=== PATIENT | male | born 1935 | race Caucasian/White ===

== ENCOUNTER 2020-01-04 10:19 | Outpatient (REF) | payer MEDICARE, SELFPAY ==
[2020-01-04 12:18] LABS: Anion Gap 9 (12-20); Blood Urea Nitrogen 23 mg/dL (9-16); Calcium 8.8 mg/dL (8.4-10.2); Carbon Dioxide 32 mmol/L (22-29); Chloride 106 mmol/L (96-108); Estimated Glomerular Filt Rate 43; Potassium 4.2 mmol/l (3.3-5.1); Sodium 143 mmol/L (135-145)
== END 2020-01-04 10:20 | disposition home or self-care (01) ==
LOC: HO.HMGCLDS 10:19
PROVIDERS: PCP Internal Medicine; Visit Provider Internal Medicine Hypertension Specialist
DX: E11.22 Type 2 diabetes mellitus with diabetic chronic kidney disease (principal); I13.10 Hypertensive heart and chronic kidney disease without heart failure, with stage 1 through stage 4 chronic kidney disease, or unspecified chronic kidney disease; E11.21 Type 2 diabetes mellitus with diabetic nephropathy; N18.30 Chronic kidney disease, stage 3 unspecified
CPT/HCPCS: 36415; 80051; 82310; 82565; 84520

== ENCOUNTER 2020-01-29 13:50 | Outpatient (REF) | payer MEDICARE, SELFPAY ==
[2020-01-29 16:08] LABS: Hemoglobin 14.7 g/dl (14.0-18.0); Mean Corpuscular Volume 88.1 fL (80-98); PLT CLUMP 1
[2020-01-29 16:10] LABS: Hematocrit 45.8 % (42-52); Mean Corpuscular HGB Conc 32.1 g/dl (31.0-36.0); Mean Corpuscular Hemoglobin 28.3 pg (27.0-33.0); Mean Platelet Volume 10.2 fL (9.4-12.4); Red Cell Distribution Width 13.1 % (11.0-16.0); White Blood Count 5.4 X10*3/uL (4.8-10.8)
[2020-01-29 16:31] LABS: Alanine Aminotransferase 18 U/L (0-40); Albumin Level 3.9 g/dL (3.5-5.0); Alkaline Phosphatase 77 U/L (39-117); Anion Gap 11 (12-20); Aspartate Amino Transferase 25 U/L (5-37); Bilirubin Total 0.7 mg/dL (0.0-1.0); Blood Urea Nitrogen 22 mg/dL (9-16); Calcium 8.2 mg/dL (8.4-10.2); Carbon Dioxide 31 mmol/L (22-29); Chloride 104 mmol/L (96-108); Estimated Glomerular Filt Rate 40; Glucose Fasting 122 mg/dL (60-99); Potassium 4.4 mmol/l (3.3-5.1); Sodium 142 mmol/L (135-145); Total Protein 6.8 g/dL (6.5-8.0)
[2020-01-29 16:51] LABS: Creatinine Urine 81.65 mg/dL; Microalbum/Creatinine Ratio Ur 8.5 ug/mg cr
== END 2020-01-29 13:51 | disposition home or self-care (01) ==
LOC: HO.LAB 13:50
PROVIDERS: PCP Internal Medicine; Referring Provider Internal Medicine; Visit Provider Internal Medicine Endocrinology, Diabetes & Metabolism
DX: E11.22 Type 2 diabetes mellitus with diabetic chronic kidney disease (principal); N18.30 Chronic kidney disease, stage 3 unspecified; E11.40 Type 2 diabetes mellitus with diabetic neuropathy, unspecified; E04.2 Nontoxic multinodular goiter; E78.5 Hyperlipidemia, unspecified; Z79.4 Long term (current) use of insulin
CPT/HCPCS: 36415; 80053; 82043; 82947; 85027; 99212

== ENCOUNTER 2020-02-04 11:33 | Outpatient (REF) | payer MEDICARE, SELFPAY ==
[2020-02-04 13:45] LABS: Albumin Level 3.8 g/dL (3.5-5.0); Calcium 8.3 mg/dL (8.4-10.2)
[2020-02-04 13:50] LABS: Vitamin D 25-OH Total 20.8 ng/mL (>30)
== END 2020-02-04 11:34 | disposition home or self-care (01) ==
LOC: HO.LAB 11:33
PROVIDERS: PCP Internal Medicine; Visit Provider Internal Medicine Endocrinology, Diabetes & Metabolism
DX: N18.30 Chronic kidney disease, stage 3 unspecified (principal)
CPT/HCPCS: 36415; 82040; 82306; 82310; 85049

== ENCOUNTER 2020-03-09 09:48 | Outpatient (REF) | payer MEDICARE, SELFPAY ==
[2020-03-09 11:38] LABS: Estimated Average Glucose 166 mg/dL; Hemoglobin A1c % 7.4 %
[2020-03-09 11:39] LABS: Hematocrit 46.1 % (42-52); Hemoglobin 14.7 g/dl (14.0-18.0); Mean Corpuscular HGB Conc 31.9 g/dl (31.0-36.0); Mean Corpuscular Hemoglobin 28.2 pg (27.0-33.0); Mean Corpuscular Volume 88.3 fL (80-98); Mean Platelet Volume 10.9 fL (9.4-12.4); PLT CLUMP 1; Red Blood Count 5.22 X10*6/uL (4.60-5.80); Red Cell Distribution Width 12.9 % (11.0-16.0)
[2020-03-09 11:56] LABS: Alanine Aminotransferase 15 U/L (0-40); Albumin Level 3.9 g/dL (3.5-5.0); Alkaline Phosphatase 73 U/L (39-117); Anion Gap 11 (12-20); Aspartate Amino Transferase 21 U/L (5-37); Bilirubin Total 0.7 mg/dL (0.0-1.0); Blood Urea Nitrogen 20 mg/dL (9-16); Calcium 8.5 mg/dL (8.4-10.2); Carbon Dioxide 30 mmol/L (22-29); Chloride 104 mmol/L (96-108); Estimated Glomerular Filt Rate 39; Glucose Fasting 131 mg/dL (60-99); Potassium 4.2 mmol/l (3.3-5.1); Sodium 141 mmol/L (135-145); Total Protein 6.5 g/dL (6.5-8.0)
[2020-03-09 12:16] LABS: Creatinine Urine 142.53 mg/dL; Microalbum/Creatinine Ratio Ur 17.5 ug/mg cr
[2020-03-09 14:40] LABS: White Blood Count 5.1 X10*3/uL (4.8-10.8)
== END 2020-03-09 09:49 | disposition home or self-care (01) ==
LOC: HO.HMGCLDS 09:48
PROVIDERS: PCP Internal Medicine; Visit Provider Internal Medicine
DX: E11.49 Type 2 diabetes mellitus with other diabetic neurological complication (principal); I10 Essential (primary) hypertension; F03.90 Unspecified dementia, unspecified severity, without behavioral disturbance, psychotic disturbance, mood disturbance, and anxiety
CPT/HCPCS: 36415; 80053; 82043; 83036; 85027

== ENCOUNTER 2020-04-29 14:36 | Outpatient (REF) | payer MEDICARE, SELFPAY ==
[2020-04-29 16:37] LABS: Alanine Aminotransferase 15 U/L (0-40); Albumin Level 4.1 g/dL (3.5-5.0); Alkaline Phosphatase 73 U/L (39-117); Anion Gap 10 (12-20); Aspartate Amino Transferase 21 U/L (5-37); Bilirubin Total 0.9 mg/dL (0.0-1.0); Blood Urea Nitrogen 25 mg/dL (9-16); Carbon Dioxide 34 mmol/L (22-29); Chloride 105 mmol/L (96-108); Estimated Glomerular Filt Rate 38; Glucose Random 115 mg/dL (60-115); Sodium 145 mmol/L (135-145); Total Protein 6.9 g/dL (6.5-8.0); Uric Acid 9.8 mg/dL (3.4-7.0)
== END 2020-04-29 14:37 | disposition home or self-care (01) ==
LOC: HO.LAB 14:36
PROVIDERS: PCP Internal Medicine; Visit Provider Student in an Organized Health Care Education/Training Program
DX: M1A.09X1 Idiopathic chronic gout, multiple sites, with tophus (tophi) (principal); Z87.891 Personal history of nicotine dependence; Z79.899 Other long term (current) drug therapy
CPT/HCPCS: 36415; 80053; 84550; 99212

== ENCOUNTER 2020-05-06 10:23 | Outpatient (REF) | payer MEDICARE, SELFPAY ==
[2020-05-06 11:41] LABS: Basophils Absolute Auto 0.1 X10*3/uL (0.0-0.2); Basophils Percent Auto 1.4 % (0-2); MANUAL DIFF FLAG SCAN; PLT CLUMP 1; Red Cell Distribution Width 12.8 % (11.0-16.0); SCAN SMEAR FLAG 1
[2020-05-06 11:43] LABS: Eosinophils Absolute Auto 0.2 X10*3/uL (0.0-0.4); Hematocrit 44.4 % (42-52); Hemoglobin 14.4 g/dl (14.0-18.0); Imm Gran Abs Auto 0.02 X10*3/uL (0.00-0.03); Imm Gran Pct Auto 0.4 % (0.0-0.4); Lymphocytes Absolute Auto 0.9 X10*3/uL (1.2-4.9); Lymphocytes Percent Auto 17.2 % (20-40); Mean Corpuscular HGB Conc 32.4 g/dl (31.0-36.0); Mean Corpuscular Hemoglobin 27.9 pg (27.0-33.0); Mean Platelet Volume 11.6 fL (9.4-12.4); Monocytes Absolute Auto 0.9 X10*3/uL (0.1-1.2); Monocytes Percent Auto 18.4 % (2-11); Neutrophils Percent Auto 59.6 % (45-73); Red Blood Count 5.16 X10*6/uL (4.60-5.80)
[2020-05-06 11:53] LABS: Albumin Level 3.6 g/dL (3.5-5.0); Anion Gap 12 (12-20); Blood Urea Nitrogen 18 mg/dL (9-16); Calcium 8.3 mg/dL (8.4-10.2); Carbon Dioxide 28 mmol/L (22-29); Chloride 108 mmol/L (96-108); Estimated Glomerular Filt Rate 41; Phosphorus 3.1 mg/dL (2.7-4.5); Potassium 3.8 mmol/L (3.3-5.1); Sodium 144 mmol/L (135-145)
[2020-05-06 12:26] LABS: SLIDE REVIEW VERIFIED
[2020-05-09 18:37] LABS: Calcium (PTHI) 8.9 mg/dL (8.6-10.3); PTHI 82 pg/mL (14-64)
== END 2020-05-06 10:24 | disposition home or self-care (01) ==
LOC: HO.HMGCLDS 10:23
PROVIDERS: PCP Internal Medicine; Visit Provider Internal Medicine Hypertension Specialist
DX: I13.10 Hypertensive heart and chronic kidney disease without heart failure, with stage 1 through stage 4 chronic kidney disease, or unspecified chronic kidney disease (principal); N18.30 Chronic kidney disease, stage 3 unspecified
CPT/HCPCS: 36415; 80051; 82040; 82310; 82565; 83735; 83970; 84100; 84520; 85025

== ENCOUNTER 2020-08-01 09:04 | Outpatient (REF) | payer MEDICARE, SELFPAY ==
[2020-08-01 11:29] LABS: PLT CLUMP 1; Red Cell Distribution Width 13.2 % (11.0-16.0)
[2020-08-01 11:31] LABS: Hematocrit 45.9 % (42-52); Hemoglobin 14.7 g/dl (14.0-18.0); Mean Corpuscular Hemoglobin 27.8 pg (27.0-33.0); Mean Corpuscular Volume 86.8 fL (80-98); Red Blood Count 5.29 X10*6/uL (4.60-5.80); White Blood Count 4.6 X10*3/uL (4.8-10.8)
[2020-08-01 12:13] LABS: Alanine Aminotransferase 17 U/L (0-40); Albumin Level 3.7 g/dL (3.5-5.0); Alkaline Phosphatase 67 U/L (39-117); Anion Gap 11 (12-20); Aspartate Amino Transferase 20 U/L (5-37); Bilirubin Total 0.9 mg/dL (0.0-1.0); Blood Urea Nitrogen 22 mg/dL (9-16); Calcium 8.7 mg/dL (8.4-10.2); Carbon Dioxide 31 mmol/L (22-29); Chloride 105 mmol/L (96-108); Cholesterol 118 mg/dL; Estimated Glomerular Filt Rate 39; Glucose Fasting 171 mg/dL (60-99); HDL Cholesterol 34 mg/dL; LDL Cholesterol Calculated 68 mg/dl; Sodium 143 mmol/L (135-145); Total Protein 6.3 g/dL (6.5-8.0); Triglycerides 83 mg/dL
[2020-08-01 12:33] LABS: Estimated Average Glucose 183 mg/dL
[2020-08-01 12:44] LABS: Creatinine Urine 168.28 mg/dL; Microalbum/Creatinine Ratio Ur 21.9 ug/mg cr
== END 2020-08-01 09:05 | disposition home or self-care (01) ==
LOC: HO.HMGCLDS 09:04
PROVIDERS: PCP Internal Medicine; Visit Provider Internal Medicine
DX: I12.9 Hypertensive chronic kidney disease with stage 1 through stage 4 chronic kidney disease, or unspecified chronic kidney disease (principal); N18.30 Chronic kidney disease, stage 3 unspecified; E11.22 Type 2 diabetes mellitus with diabetic chronic kidney disease; E11.40 Type 2 diabetes mellitus with diabetic neuropathy, unspecified
CPT/HCPCS: 36415; 80053; 80061; 82043; 83036; 85027

== ENCOUNTER → 2020-08-02 10:41 | Outpatient (BNVA) | payer MEDICARE, SELFPAY | PROVIDERS: PCP Internal Medicine; Visit Provider Internal Medicine Endocrinology, Diabetes & Metabolism | CPT/HCPCS: Q3014 ==

== ENCOUNTER → 2020-11-03 10:27 | Outpatient (BNVA) | payer MEDICARE, SELFPAY | PROVIDERS: PCP Internal Medicine; Visit Provider Nurse Practitioner Gerontology | DX: E11.40 Type 2 diabetes mellitus with diabetic neuropathy, unspecified (principal); E11.22 Type 2 diabetes mellitus with diabetic chronic kidney disease; I12.9 Hypertensive chronic kidney disease with stage 1 through stage 4 chronic kidney disease, or unspecified chronic kidney disease; N18.30 Chronic kidney disease, stage 3 unspecified; E78.5 Hyperlipidemia, unspecified; Z79.4 Long term (current) use of insulin | CPT/HCPCS: 82947; 99212 ==

== ENCOUNTER 2020-11-15 09:26 | Outpatient (REF) | payer MEDICARE, SELFPAY ==
[2020-11-15 11:40] LABS: Imm Gran Abs Auto 0.01 X10*3/uL (0.00-0.03); Imm Gran Pct Auto 0.2 % (0.0-0.4); MANUAL DIFF FLAG SCAN; Monocytes Absolute Auto 0.8 X10*3/uL (0.1-1.2); PLT CLUMP 1; Red Cell Distribution Width 12.9 % (11.0-16.0); SCAN SMEAR FLAG 1
[2020-11-15 11:42] LABS: Basophils Absolute Auto 0.1 X10*3/uL (0.0-0.2); Basophils Percent Auto 1.2 % (0-2); Eosinophils Absolute Auto 0.1 X10*3/uL (0.0-0.4); Eosinophils Percent Auto 2.1 % (0-4); Hematocrit 45.3 % (42-52); Lymphocytes Absolute Auto 0.8 X10*3/uL (1.2-4.9); Lymphocytes Percent Auto 16.7 % (20-40); Mean Corpuscular HGB Conc 33.1 g/dl (31.0-36.0); Mean Corpuscular Hemoglobin 28.1 pg (27.0-33.0); Mean Platelet Volume 12.1 fL (9.4-12.4); Monocytes Percent Auto 16.3 % (2-11); Neutrophils Absolute Auto 3.1 X10*3/uL (2.0-8.3); Neutrophils Percent Auto 63.5 % (45-73); Red Blood Count 5.33 X10*6/uL (4.60-5.80); White Blood Count 4.9 X10*3/uL (4.8-10.8)
[2020-11-15 11:49] LABS: Alanine Aminotransferase 19 U/L (0-40); Albumin Level 3.7 g/dL (3.5-5.0); Alkaline Phosphatase 65 U/L (39-117); Anion Gap 10 (12-20); Aspartate Amino Transferase 22 U/L (5-37); Bilirubin Total 0.8 mg/dL (0.0-1.0); Blood Urea Nitrogen 19 mg/dL (9-16); Calcium 8.7 mg/dL (8.4-10.2); Carbon Dioxide 28 mmol/L (22-29); Chloride 107 mmol/L (96-108); Estimated Glomerular Filt Rate 42; Glucose Random 128 mg/dL (60-115); Sodium 141 mmol/L (135-145); Total Protein 6.4 g/dL (6.5-8.0)
[2020-11-15 12:07] LABS: SLIDE REVIEW VERIFIED
== END 2020-11-15 09:27 | disposition home or self-care (01) ==
LOC: HO.HMGCLDS 09:26
PROVIDERS: PCP Internal Medicine; Visit Provider Internal Medicine Hypertension Specialist
DX: N18.32 Chronic kidney disease, stage 3b (principal)
CPT/HCPCS: 36415; 80053; 85025

== ENCOUNTER 2020-12-08 09:00 | Outpatient (REF) | payer MEDICARE, SELFPAY | END 2020-12-08 09:01 | disposition home or self-care (01) | LOC: HO.LAB 09:00 | PROVIDERS: PCP Internal Medicine; Visit Provider Nurse Practitioner Family | DX: M1A.09X1 Idiopathic chronic gout, multiple sites, with tophus (tophi) (principal); E11.9 Type 2 diabetes mellitus without complications; E04.2 Nontoxic multinodular goiter; I10 Essential (primary) hypertension; Z79.899 Other long term (current) drug therapy; Z87.891 Personal history of nicotine dependence | CPT/HCPCS: 36415; 84550; 99212 ==

== ENCOUNTER 2021-02-06 09:24 | Outpatient (REF) | payer MEDICARE, SELFPAY ==
[2021-02-06 11:45] LABS: PLT CLUMP 1
[2021-02-06 11:47] LABS: Hematocrit 45.6 % (42.0-52.0); Hemoglobin 14.9 g/dl (14.0-18.0); Mean Corpuscular HGB Conc 32.7 g/dl (31.0-36.0); Mean Corpuscular Hemoglobin 28.4 pg (27.0-33.0); Mean Corpuscular Volume 86.9 fL (80.0-98.0); Red Blood Count 5.25 X10*6/uL (4.60-5.80); Red Cell Distribution Width 13.1 % (11.0-16.0)
[2021-02-06 12:01] LABS: Alanine Aminotransferase 19 U/L (0-40); Albumin Level 3.8 g/dL (3.5-5.0); Alkaline Phosphatase 70 U/L (39-117); Anion Gap 12 (12-20); Aspartate Amino Transferase 23 U/L (5-37); Bilirubin Total 0.9 mg/dL (0.0-1.0); Blood Urea Nitrogen 20 mg/dL (9-16); Calcium 8.7 mg/dL (8.4-10.2); Carbon Dioxide 29 mmol/L (22-29); Chloride 105 mmol/L (96-108); Cholesterol 127 mg/dL; Estimated Glomerular Filt Rate 40; Glucose Fasting 139 mg/dL (60-99); HDL Cholesterol 34 mg/dL; LDL Cholesterol Calculated 71 mg/dl; Potassium 3.9 mmol/L (3.3-5.1); Sodium 142 mmol/L (135-145); Total Protein 6.4 g/dL (6.5-8.0); Triglycerides 110 mg/dL
[2021-02-06 12:09] LABS: Estimated Average Glucose 151 mg/dL; Hemoglobin A1c % 6.9 %
== END 2021-02-06 09:25 | disposition home or self-care (01) ==
LOC: HO.HMGCLDS 09:24
PROVIDERS: PCP Internal Medicine; Visit Provider Internal Medicine
DX: E11.40 Type 2 diabetes mellitus with diabetic neuropathy, unspecified (principal); E78.5 Hyperlipidemia, unspecified; I12.9 Hypertensive chronic kidney disease with stage 1 through stage 4 chronic kidney disease, or unspecified chronic kidney disease; N18.30 Chronic kidney disease, stage 3 unspecified; E11.22 Type 2 diabetes mellitus with diabetic chronic kidney disease
CPT/HCPCS: 36415; 80053; 80061; 83036; 85027

== ENCOUNTER 2021-02-20 10:18 | Outpatient (REF) | payer MEDICARE, SELFPAY ==
[2021-02-20 11:43] LABS: Anion Gap 12 (12-20); Blood Urea Nitrogen 21 mg/dL (9-16); Calcium 8.7 mg/dL (8.4-10.2); Carbon Dioxide 28 mmol/L (22-29); Chloride 107 mmol/L (96-108); Estimated Glomerular Filt Rate 39; Potassium 4.3 mmol/L (3.3-5.1); Sodium 143 mmol/L (135-145)
[2021-02-20 12:08] LABS: Creatinine Urine 135.31 mg/dL; Protein/Creatinine Ratio, Ur 0.08 (<0.2); Total Protein Urine Random 11 mg/dL (<12)
[2021-02-21 14:10] LABS: Calcium (PTHI) 8.8 mg/dL (8.6-10.3); PTHI 80 pg/mL (14-64)
== END 2021-02-20 10:19 | disposition home or self-care (01) ==
LOC: HO.HMGCLDS 10:18
PROVIDERS: PCP Internal Medicine; Visit Provider Internal Medicine Hypertension Specialist
DX: I12.9 Hypertensive chronic kidney disease with stage 1 through stage 4 chronic kidney disease, or unspecified chronic kidney disease (principal); N18.9 Chronic kidney disease, unspecified
CPT/HCPCS: 36415; 80051; 82310; 82565; 83970; 84156; 84520

== ENCOUNTER → 2021-05-19 12:21 | Outpatient (BNVA) | payer MEDICARE, SELFPAY | PROVIDERS: PCP Internal Medicine; Visit Provider Nurse Practitioner Gerontology | DX: E11.40 Type 2 diabetes mellitus with diabetic neuropathy, unspecified (principal); E11.22 Type 2 diabetes mellitus with diabetic chronic kidney disease; I12.9 Hypertensive chronic kidney disease with stage 1 through stage 4 chronic kidney disease, or unspecified chronic kidney disease; N18.30 Chronic kidney disease, stage 3 unspecified; E78.5 Hyperlipidemia, unspecified; Z79.4 Long term (current) use of insulin | CPT/HCPCS: 82947; 83036; 99212 ==

== ENCOUNTER 2021-06-05 09:42 | Outpatient (REF) | payer MEDICARE, SELFPAY ==
[2021-06-05 11:37] LABS: Basophils Absolute Auto 0.1 X10*3/uL (0.0-0.2); Basophils Percent Auto 1.6 % (0-2); Eosinophils Absolute Auto 0.2 X10*3/uL (0.0-0.4); Hematocrit 46.8 % (42.0-52.0); Hemoglobin 14.9 g/dl (14.0-18.0); Imm Gran Abs Auto 0.01 X10*3/uL (0.00-0.03); Imm Gran Pct Auto 0.2 % (0.0-0.4); Lymphocytes Absolute Auto 0.8 X10*3/uL (1.2-4.9); Lymphocytes Percent Auto 16.2 % (20-40); MANUAL DIFF FLAG SCAN; Mean Corpuscular HGB Conc 31.8 g/dl (31.0-36.0); Mean Corpuscular Hemoglobin 27.6 pg (27.0-33.0); Mean Corpuscular Volume 86.7 fL (80.0-98.0); Mean Platelet Volume 11.3 fL (9.4-12.4); Monocytes Absolute Auto 0.9 X10*3/uL (0.1-1.2); Monocytes Percent Auto 17.2 % (2-11); Neutrophils Absolute Auto 3.1 x10*3/uL (2.0-8.3); Neutrophils Percent Auto 61.8 % (45-73); PLT CLUMP 1; Red Cell Distribution Width 13.2 % (11.0-16.0); SCAN SMEAR FLAG 1
[2021-06-05 11:38] LABS: White Blood Count 5.1 X10*3/uL (4.8-10.8)
[2021-06-05 12:04] LABS: SLIDE REVIEW VERIFIED
[2021-06-05 12:10] LABS: Alanine Aminotransferase 15 U/L (0-40); Albumin Level 3.7 g/dL (3.5-5.0); Alkaline Phosphatase 65 U/L (39-117); Anion Gap 12 (12-20); Aspartate Amino Transferase 21 U/L (5-37); Bilirubin Total 0.8 mg/dL (0.0-1.0); Blood Urea Nitrogen 22 mg/dL (9-16); Carbon Dioxide 30 mmol/L (22-29); Chloride 107 mmol/L (96-108); Estimated Glomerular Filt Rate 34; Glucose Fasting 153 mg/dL (60-99); Potassium 3.9 mmol/L (3.3-5.1); Sodium 145 mmol/L (135-145); Total Protein 6.5 g/dL (6.5-8.0)
[2021-06-05 12:12] LABS: Vitamin D 25-OH Total 55.1 ng/mL (>30)
[2021-06-05 12:17] LABS: Estimated Average Glucose 157 mg/dL; Hemoglobin A1c % 7.1 %
[2021-06-05 12:29] LABS: Vitamin B12 402 pg/mL (200-900)
[2021-06-07 18:01] LABS: Uric Acid 10.4 mg/dL (3.4-7.0)
== END 2021-06-05 09:43 | disposition home or self-care (01) ==
LOC: HO.HMGCLDS 09:42
PROVIDERS: Absent Provider Internal Medicine Hypertension Specialist; PCP Internal Medicine; Visit Provider Internal Medicine
DX: I12.9 Hypertensive chronic kidney disease with stage 1 through stage 4 chronic kidney disease, or unspecified chronic kidney disease (principal); N18.30 Chronic kidney disease, stage 3 unspecified; E11.22 Type 2 diabetes mellitus with diabetic chronic kidney disease; E78.5 Hyperlipidemia, unspecified
CPT/HCPCS: 36415; 80053; 82306; 82607; 83036; 84550; 85025

== ENCOUNTER → 2021-06-07 13:08 | Outpatient (BNVA) | payer MEDICARE, SELFPAY | PROVIDERS: PCP Internal Medicine; Visit Provider Nurse Practitioner Family | DX: M1A.09X1 Idiopathic chronic gout, multiple sites, with tophus (tophi) (principal); R09.89 Other specified symptoms and signs involving the circulatory and respiratory systems | CPT/HCPCS: 99212 ==

== ENCOUNTER 2021-08-22 10:26 | Emergency (ER) | payer MEDICARE, SELFPAY ==
[2021-08-22] VITALS (9 sets, daily range): BP systolic 154–213; BP diastolic 52–90; PULSE 46–64; RESP 16–20; TEMP 36.4–37.1; O2SAT 94–96; BMI 32.7
--- NOTE | 2021-08-22 11:43 | ECG_ITS ---
Test Reason : WEAKNESS Blood Pressure : / mmHG Vent. Rate : 049 BPM Atrial Rate : 049 BPM P-R Int : 194 ms QRS Dur : 152 ms QT Int : 528 ms P-R-T Axes : 073 -14 061 degrees QTc Int : 476 ms Sinus bradycardia Right bundle branch block Abnormal ECG When compared with ECG of 28-APR-2018 15:37, Premature atrial complexes are no longer Present Vent. rate has decreased BY 26 BPM Nonspecific T wave abnormality no longer evident in Inferior leads Referred By: Madison Li Electronically Signed By:Julius Leal
--- NOTE | 2021-08-22 11:45 | ED.GENADULT ---
HPI - General Adult General Chief complaint: Fall Stated complaint: GEN WEAKNESS X'S 3 DAYS,UNABLE TO AMB ,212/76 BP Time Seen by Provider: 08/22/21 11:35 Source: patient, family and EMS Mode of arrival: EMS Limitations: other (Memory trouble) History of Present Illness HPI narrative: Patient comes to the emergency room by ambulance accompanied by his . Seems that the patient has been gradually getting weaker over the last 3 days. Today, patient was sitting in the couch at home, he was trying to get up, try using his walker, lost balance and fell sideways. Patient did not lose consciousness, did not hit his head, not on blood thinners. Patient states that he landed softly, he did not get injured, denies any pain. Patient and his are concerned about the weakness. Patient denies any recent illnesses, denies URI, GI or UTI symptoms. Related Data Home Medications Medication Instructions Recorded Confirmed blood sugar diagnostic #10 ea 01/29/20 06/09/21 hydralazine 25 mg tablet 25 mg PO TID 01/29/20 06/09/21 pen needle, diabetic 31 gauge x #50 ea 01/29/20 06/09/21 1/4 flu vacc [id number](65yr up)-PF 240 ml IM 03/16/20 06/09/21 mcg/0.7 mL intramuscular syringe metoprolol succinate 100 mg 100 mg PO DAILY 02/08/21 06/09/21 tablet,extended release 24 hr Previous Rx's Medication Instructions Recorded lancets 28 gauge #100 ea 04/13/20 insulin glargine 100 unit/mL (3 13 unit (0.13 mL) SUBCUT BEDTIME 08/02/20 mL) subcutaneous pen (Lantus 90 Days #15 ml Solostar U-100 Insulin) lancets 28 gauge (FreeStyle #300 ea 08/02/20 Lancets) furosemide 20 mg tablet 20 mg PO DAILY #90 tab 10/05/20 pen needle, diabetic 32 gauge x #400 ea 10/18/20 (BD Solange 2nd Gen Pen Needle) metoprolol succinate 50 mg 50 mg PO DAILY #90 tab 12/27/20 tablet,extended release 24 hr metformin 500 mg tablet 500 mg PO DAILY #90 tab 02/17/21 memantine 10 mg tablet 10 mg PO BID #180 tab 05/08/21 insulin lispro 100 unit/mL See Rx Instructions SUBCUT TID #15 05/19/21 subcutaneous pen (Humalog KwikPen ml (U-100) Insulin) calcium carbonate 600 mg calcium 600 mg PO DAILY #90 tab 06/07/21 (1,500 mg) tablet atorvastatin 40 mg tablet 40 mg PO DAILY #90 tab 06/19/21 FreeStyle Lite Strips (blood sugar #300 ea NS 08/08/21 diagnostic) cholecalciferol (vitamin D3) 50 100 mcg PO DAILY 90 Days #180 cap 08/16/21 mcg (2,000 unit) capsule Allergies Allergy/AdvReac Type Severity Reaction Status Date / Time No Known Allergies Allergy Verified 06/09/21 12:00 [No Known Allergies*] Review of Systems Review of Systems: Constitutional : No Weight loss, No Fever, No Chills, No Night Sweats, complaining of weakness ENT/Mouth : No Hearing loss, No Ear Pain, No Nasal Congestion, No Sinus Pain, No Hoarseness, No sore throat, No Rhinorrhea, No Swallowing Difficulty Eyes: No Eye Pain, No Swelling, No Redness, No Foreign Body, No Discharge, No Vision Changes Cardiovascular : No Chest Pain, No SOB, No Dyspnea on Exertion, No Orthopnea, No Edema, No Palpitations Respiratory : No Cough, No Sputum, No Wheezing, No Smoke Exposure, No Dyspnea Gastrointestinal : No Nausea, No Vomiting, No Diarrhea, No Constipation, No abdominal Pain, No Hematochezia, No Melena Genitourinary : no irregular bleeding, No Dysuria, No Urinary Frequency, No Hematuria, No Urinary Incontinence, No Urgency, No Flank Pain, No Urinary Flow Changes, No Hesitancy Musculoskeletal : No joint pain, No Myalgias, No Joint Swelling Skin : No Skin Lesions, No rash Neuro : No Weakness, No Numbness, No Paresthesias, No Loss of Consciousness, No Dizziness, No Headache Psych : No Anxiety/Panic, No Depression, No SI/HI/AH/VH, No Social Issues, Heme/Lymph: No Bruising, No Bleeding,No Lymphadenopathy Endocrine : No Polyuria, No Polydipsia, No Temperature Intolerance PMFSH Past Medical History Medical History CKD (chronic kidney disease) stage 3, GFR 30-59 ml/min Diabetic neuropathy associated with type 2 diabetes mellitus Dyslipidemia Gout HTN (hypertension) 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 Social History Social History Household Members: Spouse Housing: House Alcohol intake: never Patient Tobacco Use Status: Former Tobacco user Years Smoked: QUIT 35 YEARS AGO e-Cigarette/Vaping Use: Never Used Use of substances other than those prescribed or required for medical reasons: No Advance Directives: No Advance Directives Information Provided: No Current occupational status: retired Physical Exam ED Vital Signs: Vital Signs - 24 hr 08/22/21 10:41 08/22/21 11:32 08/22/21 14:05 Temperature 98.8 F 97.7 F Pulse Rate 53 48 L 48 L Respiratory Rate 17 18 Blood Pressure 154/52 H 167/55 H 167/55 H Pulse Oximetry 94 94 94 08/22/21 14:24 Temperature 97.5 F Pulse Rate 46 L Respiratory Rate 18 Blood Pressure 188/69 H Pulse Oximetry 94 BMI result Body Mass Index 32.7 Const Other: Appearance: Alert. Oriented X3. No acute distress. Eyes: Pupils equal, round and reactive to light. ENT: Pharynx normal. Neck: Normal inspection. Neck supple. No lymph nodes noted. No crepitus CVS: Normal heart rate and rhythm. Pulses normal. Normal S1 and S2 Respiratory: No respiratory distress. Breath sounds normal. No Wheezing. No rales Abdomen: Soft and nontender. No rigidity. No distention. Skin: Skin warm and dry. Normal skin color. Normal skin turgor. Extremities: No lower extremity edema. No Lacerations. No Rash Neuro: Oriented X 3. No motor deficit. No sensory deficit. Moving all extremities. No slurred speech. CN 2 through 12 grossly intact Psych: calm, cooperative, normal affect Course Course Course Narrative: Patient has no pain on physical exam. Before we attempt to have the patient walk, we will obtain labs, EKG, then we will re-evaluate his strength. Patient does not seem to have any source of infection, creatinine at baseline, COVID negative, troponin negative. Urine is clean. Vitals are stable. Patient will be evaluated by case management and physical therapy. Physician observation started at 13:20 Case Management and Physical therapy evaluated the patient, recommendations are short-term rehab. Patient will likely stay overnight in the emergency room and sent to short-term rehab tomorrow morning (08/23) Medical Decision Making Lab Data Result diagrams: 08/22/21 12:04 08/22/21 12:04 Labs: Lab Results 08/22/21 08/22/21 08/22/21 Range/Units 12:04 12:04 12:04 WBC 5.8 (4.8-10.8) X10*3/uL RBC 5.26 (4.60-5.80) X10*6/uL Hgb 14.7 (14.0-18.0) g/dl Hct 45.7 (42.0-52.0) % MCV 86.9 (80.0-98.0) fL MCH 27.9 (27.0-33.0) pg MCHC 32.2 (31.0-36.0) g/dl RDW 13.3 (11.0-16.0) % Plt Count 136 L (160-400) X10*3/uL MPV 9.7 (9.4-12.4) fL Immature Gran % (Auto) 0.3 (0.0-0.4) % Neut % (Auto) 74.1 H (45-73) % Lymph % (Auto) 8.7 L (20-40) % [place] % (Auto) 13.9 H (2-11) % Eos % (Auto) 2.3 (0-4) % Baso % (Auto) 0.7 (0-2) % Lymph # (Auto) 0.5 L (1.2-4.9) X10*3/uL [place] # (Auto) 0.8 (0.1-1.2) X10*3/uL Eos # (Auto) 0.1 (0.0-0.4) X10*3/uL Baso # (Auto) 0.0 (0.0-0.2) X10*3/uL Abs Immat Gran (auto) 0.02 (0.00-0.03) X10*3/uL Absolute Neuts (auto) 4.3 (2.0-8.3) x10*3/uL Absolute Nucleated RBC 0.000 (0.0-0.012) X10*3/uL Nucleated RBC % (auto) 0.0 (0.0-0.2) /100WBC Sodium 140 (135-145) mmol/L Potassium 4.6 (3.3-5.1) mmol/L Chloride 105 (96-108) mmol/L Carbon Dioxide 28 (22-29) mmol/L Anion Gap 12 (12-20) BUN 21 H (9-16) mg/dL Creatinine 1.75 H (0.5-1.4) mg/dL Estim Creat Clear Calc 37.8 Estimated GFR 37 Random Glucose 261 H D (60-115) mg/dL Calcium 9.2 (8.4-10.2) mg/dL Magnesium 2.1 (1.6-2.6) mg/dL Total Bilirubin 0.7 (0.0-1.0) mg/dL Direct Bilirubin 0.4 (0.0-0.5) mg/dL AST 27 (5-37) U/L ALT 27 (0-40) U/L Alkaline Phosphatase 71 (39-117) U/L Troponin I High Sens 9.6 (<3.5-35.0) ng/L Total Protein 6.5 (6.5-8.0) g/dL Albumin 3.7 (3.5-5.0) g/dL Urine Color Urine Appearance Urine pH (5.0-8.0) Ur Specific [place] (1.005-1.025) Urine Protein (NEG-TRACE) MG/DL Urine Glucose (UA) (NEG) MG/DL Urine Ketones (NEG) MG/DL Urine Blood (NEG) Urine Nitrite (NEG) Ur Leukocyte Esterase (NEG) COVID-19 ([facility]NA) (Negative) COVID-19 Clin Com 08/22/21 08/22/21 Range/Units 12:04 12:13 WBC (4.8-10.8) X10*3/uL RBC (4.60-5.80) X10*6/uL Hgb (14.0-18.0) g/dl Hct (42.0-52.0) % MCV (80.0-98.0) fL MCH (27.0-33.0) pg MCHC (31.0-36.0) g/dl RDW (11.0-16.0) % Plt Count (160-400) X10*3/uL MPV (9.4-12.4) fL Immature Gran % (Auto) (0.0-0.4) % Neut % (Auto) (45-73) % Lymph % (Auto) (20-40) % [place] % (Auto) (2-11) % Eos % (Auto) (0-4) % Baso % (Auto) (0-2) % Lymph # (Auto) (1.2-4.9) X10*3/uL [place] # (Auto) (0.1-1.2) X10*3/uL Eos # (Auto) (0.0-0.4) X10*3/uL Baso # (Auto) (0.0-0.2) X10*3/uL Abs Immat Gran (auto) (0.00-0.03) X10*3/uL Absolute Neuts (auto) (2.0-8.3) x10*3/uL Absolute Nucleated RBC (0.0-0.012) X10*3/uL Nucleated RBC % (auto) (0.0-0.2) /100WBC Sodium (135-145) mmol/L Potassium (3.3-5.1) mmol/L Chloride (96-108) mmol/L Carbon Dioxide (22-29) mmol/L Anion Gap (12-20) BUN (9-16) mg/dL Creatinine (0.5-1.4) mg/dL Estim Creat Clear Calc Estimated GFR Random Glucose (60-115) mg/dL Calcium (8.4-10.2) mg/dL Magnesium (1.6-2.6) mg/dL Total Bilirubin (0.0-1.0) mg/dL Direct Bilirubin (0.0-0.5) mg/dL AST (5-37) U/L ALT (0-40) U/L Alkaline Phosphatase (39-117) U/L Troponin I High Sens (<3.5-35.0) ng/L Total Protein (6.5-8.0) g/dL Albumin (3.5-5.0) g/dL Urine Color YELLOW Urine Appearance CLEAR Urine pH 5.5 (5.0-8.0) Ur Specific [place] 1.020 (1.005-1.025) Urine Protein NEG (NEG-TRACE) MG/DL Urine Glucose (UA) 100 H (NEG) MG/DL Urine Ketones NEG (NEG) MG/DL Urine Blood NEG (NEG) Urine Nitrite NEG (NEG) Ur Leukocyte Esterase NEG (NEG) COVID-19 (APARNA) Negative (Negative) COVID-19 Clin Com See Note Discharge Plan Discharge Clinical Impression: Generalized weakness Patient Disposition: Still a Patient Prescriptions: No [facility] (DME) lancets 28 gauge misc See Rx Instructions ea topical TID Qty: 100 6RF Rx Instructions: As directed furosemide 20 mg tablet 20 mg PO DAILY Qty: 90 3RF (DME) pen needle, diabetic [BD Solange 2nd Gen Pen Needle] 32 gauge x needle See Rx Instructions .MEDSUPPLY Qty: 400 4RF Rx Instructions: 5 times a day metoprolol succinate 50 mg tablet extended release 24 hr 50 mg PO DAILY Qty: 90 3RF metformin 500 mg tablet 500 mg PO DAILY Qty: 90 2RF memantine 10 mg tablet 10 mg PO BID Qty: 180 3RF calcium carbonate 600 mg calcium (1,500 mg) tablet 600 mg PO DAILY Qty: 90 2RF atorvastatin 40 mg tablet 40 mg PO DAILY Qty: 90 1RF (DME) FreeStyle Lite Strips Strip See Rx Instructions .ROUTE .MEDSUPPLY Qty: 300 10RF Rx Instructions: 3 times a day cholecalciferol (vitamin D3) 50 mcg (2,000 unit) capsule 100 mcg PO DAILY 90 Days Qty: 180 2RF Fluzone HighDose Quad 20-21 PF 240 mcg/0.7 mL syringe IM 0RF metoprolol succinate 100 mg tablet extended release 24 hr 100 mg PO DAILY 0RF (DME) FreeStyle Lite Strips Strip See Rx Instructions ea Not Applicable TID Qty: 10 0RF Rx Instructions: As directed hydralazine 25 mg tablet 25 mg PO TID 0RF (DME) pen needle, diabetic 31 gauge x 1/ needle See Rx Instructions ea .ROUTE QID Qty: 50 0RF Rx Instructions: As directed insulin lispro [Humalog KwikPen Insulin] 100 unit/mL insulin pen See Rx Instructions subcut TID Qty: 15 4RF Rx Instructions: 6 units with breakfast and lunch, 10 units with dinner. subcut 3 times a day; Lantus Solostar U-100 Insulin 100 unit/mL (3 mL) insulin pen 13 unit subcut BEDTIME 90 Days Qty: 15 2RF (DME) lancets [FreeStyle Lancets] 28 gauge misc See Rx Instructions .ROUTE .MEDSUPPLY Qty: 300 3RF Rx Instructions: use 1 lancet three times a day to test blood sugar
[2021-08-22 12:13] LABS: MANUAL DIFF FLAG NO
[2021-08-22 12:16] LABS: Basophils Percent Auto 0.7 % (0-2); Eosinophils Absolute Auto 0.1 X10*3/uL (0.0-0.4); Eosinophils Percent Auto 2.3 % (0-4); Hematocrit 45.7 % (42.0-52.0); Hemoglobin 14.7 g/dl (14.0-18.0); Imm Gran Abs Auto 0.02 X10*3/uL (0.00-0.03); Imm Gran Pct Auto 0.3 % (0.0-0.4); Lymphocytes Absolute Auto 0.5 X10*3/uL (1.2-4.9); Lymphocytes Percent Auto 8.7 % (20-40); Mean Corpuscular HGB Conc 32.2 g/dl (31.0-36.0); Mean Corpuscular Hemoglobin 27.9 pg (27.0-33.0); Mean Corpuscular Volume 86.9 fL (80.0-98.0); Mean Platelet Volume 9.7 fL (9.4-12.4); Monocytes Absolute Auto 0.8 X10*3/uL (0.1-1.2); Monocytes Percent Auto 13.9 % (2-11); Neutrophils Absolute Auto 4.3 x10*3/uL (2.0-8.3); Neutrophils Percent Auto 74.1 % (45-73); Platelet Count 136 X10*3/uL (160-400); Red Blood Count 5.26 X10*6/uL (4.60-5.80); Red Cell Distribution Width 13.3 % (11.0-16.0); White Blood Count 5.8 X10*3/uL (4.8-10.8)
[2021-08-22 12:20] LABS: Appearance Urine CLEAR; Color Urine YELLOW; Glucose Urine UA 100 MG/DL (NEG); Leukocyte Esterase Urine NEG (NEG); Nitrite Urine NEG (NEG); PH 5.5 (5.0-8.0); Urine Blood NEG (NEG); Urine Ketones NEG (NEG); Urine Protein NEG (NEG-TRACE)
[2021-08-22 12:33] LABS: COVID-19 Test Negative (Negative)
[2021-08-22 12:36] LABS: Alanine Aminotransferase 27 U/L (0-40); Albumin Level 3.7 g/dL (3.5-5.0); Alkaline Phosphatase 71 U/L (39-117); Anion Gap 12 (12-20); Aspartate Amino Transferase 27 U/L (5-37); Bilirubin Direct 0.4 mg/dL (0.0-0.5); Bilirubin Total 0.7 mg/dL (0.0-1.0); Blood Urea Nitrogen 21 mg/dL (9-16); Calcium 9.2 mg/dL (8.4-10.2); Carbon Dioxide 28 mmol/L (22-29); Chloride 105 mmol/L (96-108); Creatinine Clr Calc Pharmacy 37.8; Estimated Glomerular Filt Rate 37; Glucose Random 261 mg/dL (60-115); Magnesium 2.1 mg/dL (1.6-2.6); Potassium 4.6 mmol/L (3.3-5.1); Sodium 140 mmol/L (135-145); Total Protein 6.5 g/dL (6.5-8.0)
[2021-08-22 12:43] LABS: Troponin-I High Sensitivity 9.6 ng/L (<3.5-35.0)
--- NOTE | 2021-08-22 14:25 | MHC.CM.ED ---
Addendum entered by Josselin Coffey 08/22/21 14:42: Patient and aware patient will have the spend the night in the ER until a facility can be found and insurance auth can be obtained. Original Note: Received case management consult from Dr Li. Patient came to the ER due to increased weakness. Work up essentially negative. Physical therapy eval completed. Short term rehab is recommended. Met with patient and , Mariluz in regards to discharge planning. Patient and live together. Patient ambulates independently and had no services prior to coming to the ER. PCP verified. Patient received 2 Pfizer vaccines. HCP completed, signed and witnessed. Original given to patient. Copy placed in chart. List of facilities contracted with [facility] provided from [facility]. Patient and will review list and provide CM with at least 2 facility choices. Continue to monitor for d/c needs.
[2021-08-22] MEDS: hydrALAZINE HCl 25 MG TABLET PO ×2 (14:33→22:44)
--- NOTE | 2021-08-22 15:02 | MHC.CM.ED ---
Patient choices: [facility]) [facility]) [facility]. Referral sent via [facility]. Continue to monitor for d/c needs.
--- NOTE | 2021-08-22 21:53 | PC.NURSE ---
Addendum entered by Latia Hough 08/23/21 07:03: Report given CHARLETTE Mendoza Addendum entered by Latia Hough 08/22/21 23:31: Report received from CHARLETTE Beebe. pt is alert and oriented x4. no signs of acute distress notice. breathing equally unlabored. denies any chest pain or sob Original Note: DR. Li made aware of pt BP
--- NOTE | 2021-08-22 22:12 | ECG_ITS ---
Test Reason : high bp Blood Pressure : / mmHG Vent. Rate : 050 BPM Atrial Rate : 050 BPM P-R Int : 218 ms QRS Dur : 134 ms QT Int : 512 ms P-R-T Axes : 074 -16 053 degrees QTc Int : 466 ms Sinus bradycardia with 1st degree A-V block Right bundle branch block Inferior infarct , age undetermined Abnormal ECG When compared with ECG of 22-AUG-2021 11:49, Inferior infarct is now Present Referred By: Alexandr Rosado Electronically Signed By:Julius Leal
[2021-08-22] MEDS: Furosemide 20 MG/2 ML VIAL IVPUSH (22:36)
[2021-08-23 00:50] LABS: Troponin-I High Sensitivity 10.3 ng/L (<3.5-35.0)
[2021-08-23] MEDS: amLODIPine Besylate 5 MG TABLET PO ×2 (01:22→11:30)
[2021-08-23 01:23] VITALS: BP 168/68; PULSE 53; RESP 20; O2SAT 93
[2021-08-23 03:12] VITALS: RESP 16
[2021-08-23 06:00] VITALS: BP 175/70; PULSE 50; RESP 16; TEMP 36.7; O2SAT 93
[2021-08-23 08:44] VITALS: BP 155/67; PULSE 57; RESP 12; TEMP 36.6; O2SAT 94
--- NOTE | 2021-08-23 10:19 | MHC.CM.ED ---
Addendum entered by Josselin Coffey 08/23/21 11:47: Mariluz at bedside. [facility] is now 1st choice.Waiting to hear if lion Original Note: Patient remains in ER overflow. [facility] unable to offer a bed. Mariluz requesting referral to [facility]. [facility]. Referral broadcasted in [facility]. [facility], [facility], [facility], [facility] and [facility] are able to offer a bed. Mariluz is concerned because she feels like they're too far away and she doesn't drive. She will be in the hospital in about an hour. CM will meet with her to discuss d/c planning. Continue to monitor for d/c needs.
[2021-08-23 11:29] VITALS: BP 165/72; PULSE 46; RESP 12; TEMP 36.6; O2SAT 94
--- NOTE | 2021-08-23 11:47 | MHC.CM.ED ---
Patient remains in ER overflow. [facility]. Mariluz requesting referral to [facility]. [facility] not [facility]. Referral broadcasted in [facility]. [facility], [facility], [facility], [place] [facility] and [facility] are able to offer a bed. Mariluz is concerned because she feels like they're too far away and she doesn't drive. She will be in the hospital in about an hour. CM will meet with her to discuss d/c planning. Continue to monitor for d/c needs.
--- NOTE | 2021-08-23 11:48 | MHC.CM.ED ---
Addendum entered by Josselin Coffey 08/23/21 12:50: [facility] is in the process of obtaining insurance auth. Original Note: Patient's , Mariluz at bedside. [facility] is now 1st choice. Waiting to hear if [facility] is able to offer a bed. Continue to monitor for d/c needs.
[2021-08-23 16:00] VITALS: BP 163/66; PULSE 51; RESP 17; TEMP 36.8; O2SAT 95
--- NOTE | 2021-08-23 16:50 | PHA.MEDREC ---
Pharmacy Consult ? Medication Reconciliation Pharmacy has completed the medication reconciliation. Spoke with pt's , no longer taking metformin
--- NOTE | 2021-08-23 17:23 | MHC.CM.ED ---
[facility] received insurance auth from [facility]. [facility]pm [facility], as [facility] was unable to provide transportation. Per [facility], authorization # [id number]. Both patient and aware of transport tonight. had questions about duration of therapy, how pt would be cared for, if there is a doctor at the facility, what happens if he needs more therapy and directions to the facility. All questions answered. Encouraged to call facility for directions. has contact information. CM explained that pt may be there for 1-2 weeks, that the nurses will evaluate him, as well as the physical therapist and that there is a doctor at the facility, but that the doctor would not be seeing the patient daily. Explained that if pt needed more therapy, then the alf will work with her and arrange VNA with home PT. Explained that she would need to speak with the addiction social worker at the facility, as her would no longer be my patient. Full report, ED worksheet and med nec given to RN in ED [facility] skinner. VICKI to follow for d/c needs.
--- NOTE | 2021-08-23 19:04 | PC.NURSE ---
report received from CHARLETTE Chaney
--- NOTE | 2021-08-23 20:19 | PC.NURSE ---
RN-RN report called into [facility].
--- NOTE | 2021-08-23 21:15 | MHC.CM.ED ---
Received call from Hunter OVALLES at [facility] requesting d/c paperwork on this patient. Requested D/C transfer summary, ED note, med list and PT evaluation. All requested paperwork faxed to [phone].
== END 2021-08-23 20:33 | disposition skilled nursing facility (03) ==
PROVIDERS: Physician Assistant; Emergency Provider Emergency Medicine; PCP Internal Medicine
DX: R53.1 Weakness (principal); E11.9 Type 2 diabetes mellitus without complications; I10 Essential (primary) hypertension; R00.1 Bradycardia, unspecified; Z87.891 Personal history of nicotine dependence; Z20.822 Contact with and (suspected) exposure to COVID-19; Z79.899 Other long term (current) drug therapy; Z79.4 Long term (current) use of insulin
CPT/HCPCS: 36415; 80048; 80076; 81003; 83735; 84484; 85025; 87635; 93005; 96374; 97162; 99284; 99285; J1940

== ENCOUNTER 2021-10-04 09:09 | Outpatient (REF) | payer MEDICARE, SELFPAY ==
[2021-10-04 12:07] LABS: Estimated Average Glucose 154 mg/dL
[2021-10-04 12:12] LABS: Alanine Aminotransferase 26 U/L (0-40); Albumin Level 3.8 g/dL (3.5-5.0); Alkaline Phosphatase 72 U/L (39-117); Anion Gap 12 (12-20); Aspartate Amino Transferase 27 U/L (5-37); Blood Urea Nitrogen 26 mg/dL (9-16); Calcium 8.9 mg/dL (8.4-10.2); Carbon Dioxide 27 mmol/L (22-29); Chloride 107 mmol/L (96-108); Cholesterol 134 mg/dL; Estimated Glomerular Filt Rate 40; Glucose Fasting 152 mg/dL (60-99); HDL Cholesterol 40 mg/dL; LDL Cholesterol Calculated 75 mg/dl; Potassium 4.2 mmol/L (3.3-5.1); Sodium 142 mmol/L (135-145); Total Protein 6.7 g/dL (6.5-8.0); Triglycerides 99 mg/dL
[2021-10-04 12:20] LABS: Anion Gap 12 (12-20); Blood Urea Nitrogen 26 mg/dL (9-16); Calcium 8.8 mg/dL (8.4-10.2); Carbon Dioxide 28 mmol/L (22-29); Chloride 106 mmol/L (96-108); Estimated Glomerular Filt Rate 40; Potassium 4.1 mmol/L (3.3-5.1); Sodium 142 mmol/L (135-145)
[2021-10-04 13:04] LABS: Creatinine Urine 172.85 mg/dL; Microalbum/Creatinine Ratio Ur 19.6 ug/mg cr
[2021-10-04 13:09] LABS: Creatinine Urine 171.88 mg/dL; Protein/Creatinine Ratio, Ur 0.09 (<0.2); Total Protein Urine Random 15 mg/dL (<12)
== END 2021-10-04 09:10 | disposition home or self-care (01) ==
LOC: HO.HMGCLDS 09:09
PROVIDERS: Absent Provider Internal Medicine Hypertension Specialist; PCP Internal Medicine; Visit Provider Internal Medicine
DX: I12.9 Hypertensive chronic kidney disease with stage 1 through stage 4 chronic kidney disease, or unspecified chronic kidney disease (principal); N18.32 Chronic kidney disease, stage 3b; E11.22 Type 2 diabetes mellitus with diabetic chronic kidney disease; E78.5 Hyperlipidemia, unspecified; Z79.4 Long term (current) use of insulin
CPT/HCPCS: 36415; 80051; 80053; 80061; 82043; 82310; 82565; 83036; 84156; 84443; 84520

== ENCOUNTER 2021-10-25 14:48 | Outpatient (REF) | payer MEDICARE, SELFPAY ==
--- NOTE | ~2021-10-25 | XR_ITS ---
EXAMINATION: XR ELBOW, RIGHT CLINICAL INFORMATION: Right elbow effusion COMPARISON: None TECHNIQUE: AP, lateral, and oblique views of the right elbow. FINDINGS: Bone alignment is normal. No fracture or dislocation is seen. There is a small coronoid process osteophyte. Joint spaces are otherwise normal. There is no joint effusion. There is an osteophyte at the triceps tendon insertion to the olecranon. There is soft tissue swelling over the olecranon suggestive of olecranon bursitis. There are small soft tissue ossifications or osteophytes adjacent to both humeral epicondyles. XR/XR elbow RT 2V IMPRESSION: Mild degenerative changes. Soft tissue swelling over the olecranon suggestive of olecranon bursitis.
[2021-10-25 17:08] LABS: Uric Acid 7.5 mg/dL (3.4-7.0)
== END 2021-10-25 14:49 | disposition home or self-care (01) ==
LOC: HO.HMGCX 14:48
PROVIDERS: PCP Internal Medicine; Visit Provider Internal Medicine
DX: M25.421 Effusion, right elbow (principal)
CPT/HCPCS: 36415; 73070; 84550

== ENCOUNTER → 2021-12-05 13:54 | Outpatient (BNVA) | payer MEDICARE, SELFPAY | PROVIDERS: PCP Internal Medicine; Visit Provider Nurse Practitioner Family | DX: M1A.09X1 Idiopathic chronic gout, multiple sites, with tophus (tophi) (principal); R09.89 Other specified symptoms and signs involving the circulatory and respiratory systems | CPT/HCPCS: 99212 ==

== ENCOUNTER → 2021-12-11 14:50 | Outpatient (BNVA) | payer MEDICARE, SELFPAY | PROVIDERS: PCP Internal Medicine; Referring Provider Internal Medicine; Visit Provider Internal Medicine Cardiovascular Disease | DX: R00.1 Bradycardia, unspecified (principal); I10 Essential (primary) hypertension; Z79.899 Other long term (current) drug therapy | CPT/HCPCS: 99202 ==

== ENCOUNTER 2021-12-22 19:28 | Inpatient (IN) | payer MEDICARE, SELFPAY ==
--- NOTE | ~2021-12-22 | XR_ITS ---
EXAMINATION: PORTABLE CHEST 1 VIEW CLINICAL INFORMATION: hypoxia . COMPARISON: 04/12/2019 chest x-ray and 04/12/2019 CT scan. TECHNIQUE: Portable frontal view of the chest was obtained. FINDINGS: Lungs well-expanded. Patchy bilateral airspace disease is again noted with distribution similar to the prior study with slight peripheral predominance. Underlying interstitial lung disease would be favored. Overall this does appear to have progressed from the prior 2020 studies. No additional focal airspace disease, effusion, or pneumothorax. No overt edema. Cardiac silhouette is prominent but unchanged. Vascular calcification in aorta. XR/XR chest 1V IMPRESSION: Increased patchy airspace disease and interstitial markings with a peripheral predominance suggesting underlying interstitial lung disease which has progressed from the 2020 examinations.
--- NOTE | ~2021-12-22 | CT_ITS ---
EXAMINATION: CT ANGIOGRAM OF THE CHEST WITH AND WITHOUT CONTRAST (CT PULMONARY ANGIOGRAM FOR PE) CLINICAL INFORMATION: Reason for Exam dyspnea COMPARISON: Chest radiograph earlier today, CT chest 04/12/2019 TECHNIQUE: Prior to contrast administration, noncontrast localization images were obtained. Subsequently, multidetector volumetric imaging was performed from the thoracic inlet to below the diaphragms following the administration of 71 mL Omnipaque 350 intravenous contrast. No contrast reaction reported Sagittal, coronal, and MIP oblique sagittal reformatted images were obtained on the CT workstation, uploaded to PACS, and reviewed. This CT examination was performed using dose optimization techniques as appropriate, variously including the following: *Automated exposure control *Adjustment of mA and/or kV according to patient size (this includes techniques or standardized protocols for targeted exams where dose is matched to indication/reason for exam; i.e. extremities or head) *Use of iterative reconstruction technique Total exam dose-length product 340 mGy-cm FINDINGS: QUALITY OF STUDY/CONTRAST BOLUS: Satisfactory. PULMONARY ARTERIES: No central or large segmental pulmonary emboli. THORACIC AORTA: No aneurysm or dissection. LUNG: Again seen is diffuse interstitial prominence with honeycombing and fibrotic changes. Compared to the prior study, increased groundglass changes seen which may represent superimposed interstitial edema. Infection cannot be entirely excluded. PLEURA: No pleural effusion or pneumothorax. MEDIASTINUM: The heart is enlarged. No pericardial effusion. No hilar or mediastinal lymphadenopathy. No evidence of septal bowing or right heart strain. Coronary calcifications are present. CHEST WALL/AXILLA: No axillary or internal mammary lymphadenopathy. OSSEOUS STRUCTURES: No acute or suspicious osseous abnormality. UPPER ABDOMEN: Benign right-sided Bosniak class I cyst which needs no further imaging or follow-up. No reflux of contrast into the hepatic veins to suggest elevated right heart pressures. CT/CT angio chest PE protocol IMPRESSION: 1. No evidence of pulmonary emboli 2. Severe fibrotic interstitial disease with worsening interstitial edema, possibly superimposed vascular congestion-infectious etiologies cannot be excluded. VTE: negative
--- NOTE | ~2021-12-22 | XR_ITS ---
EXAMINATION: XR CHEST CLINICAL INFORMATION: Hypoxia COMPARISON: Chest x-ray from 12/22/2021 TECHNIQUE: 2 views of the chest were obtained. FINDINGS: Heart is enlarged. Diffuse interstitial and airspace opacities are again seen throughout the bilateral lung parenchyma with slight interval worsening compared to the prior exam. No significant pleural effusion seen. XR/XR chest 2V IMPRESSION: Extensive diffuse interstitial and airspace opacities with slight interval worsening
[2021-12-22 19:47] VITALS: BP 143/53; BP 160/60; PULSE 59; PULSE 61; RESP 14; TEMP 36.6; O2SAT 143; O2SAT 90
--- NOTE | 2021-12-22 20:42 | ECG_ITS ---
Test Reason : SOB Blood Pressure : / mmHG Vent. Rate : 061 BPM Atrial Rate : 061 BPM P-R Int : 198 ms QRS Dur : 146 ms QT Int : 508 ms P-R-T Axes : 013 -19 -01 degrees QTc Int : 511 ms Normal sinus rhythm Right bundle branch block Minimal voltage criteria for LVH, may be normal variant ( R in aVL ) Possible Lateral infarct (cited on or before 22-AUG-2021) Inferior infarct (cited on or before 22-AUG-2021) Abnormal ECG When compared with ECG of 22-AUG-2021 22:18, T wave inversion now evident in Inferior leads Referred By: Antonio Mayberry Electronically Signed By:KESHA DUKE
--- NOTE | 2021-12-22 20:44 | ED.SOB ---
HPI - SOB/Dyspnea General Chief Complaint: Dyspnea Stated Complaint: general weakness Time Seen by Provider: 12/22/21 19:36 Source: patient Mode of arrival: ambulatory Limitations: no limitations History of Present Illness HPI Narrative: 86-year-old male with advanced dementia lives with his was noticed a gradual decline over the past week his breathing when he ambulates he gets very short of breath patient has no complaints he denies cough fever or chest pain she states it is worse with any kind of ambulation patient has never had to be on oxygen before oxygen saturation was 90 for EMS he is on 2 L here he is 93-94%. He was a former smoker but quit 35 years ago. MD elicited complaint: shortness of breath Related Data Home Medications Medication Instructions Recorded Confirmed blood sugar diagnostic #10 ea 01/29/20 10/25/21 pen needle, diabetic 31 gauge x #50 ea 01/29/20 10/25/21/ insulin lispro 100 unit/mL 10 unit subcut DAILY@1700 08/23/21 12/22/21 subcutaneous pen (Humalog KwikPen (U-100) Insulin) hydralazine 25 mg tablet 25 mg PO TID 09/15/21 12/22/21 febuxostat 40 mg tablet 40 mg PO DAILY 12/11/21 12/22/21 Previous Rx's Medication Instructions Recorded lancets 28 gauge #100 ea 04/13/20 lancets 28 gauge (FreeStyle #300 ea 08/02/20 Lancets) memantine 10 mg tablet 10 mg PO BID #180 tabs 05/08/21 atorvastatin 40 mg tablet 40 mg PO DAILY #90 tabs 06/19/21 FreeStyle Lite Strips (blood sugar #300 ea 08/08/21 diagnostic) amlodipine 5 mg tablet 5 mg PO DAILY #90 tabs 09/15/21 insulin glargine 100 unit/mL (3 13 unit (0.13 mL) subcut BEDTIME 10/17/21 mL) subcutaneous pen (Lantus #15 mL Solostar U-100 Insulin) metoprolol succinate 50 mg 50 mg PO DAILY #30 tabs 10/25/21 tablet,extended release 24 hr insulin lispro 100 unit/mL 6 unit (0.06 mL) subcut 11/03/21 subcutaneous pen (Humalog KwikPen BIDWMEAL@0800,1200 30 days #15 mL (U-100) Insulin) calcium carbonate 600 mg calcium 600 mg PO DAILY #90 tabs 11/21/21 (1,500 mg) tablet pen needle, diabetic 32 gauge x #400 ea 12/16/21 (BD Solange 2nd Gen Pen Needle) furosemide 20 mg tablet 20 mg PO DAILY #90 tabs 12/21/21 Allergies Allergy/AdvReac Type Severity Reaction Status Date / Time No Known Allergies Allergy Verified 12/05/21 20:35 [No Known Allergies*] Review of Systems Review of Systems: Review of systems: General: Patient denies any fever chills recent illness or falls Musculoskeletal: Denies back pain or body aches or other injuries HEENT: denies headache, runny nose, ear pain Respiratory: denies shortness of breath, cough Cardiovascular: no chest pain or palpitations : denies dysuria, frequency Abdomen: no nausea vomiting denies abdominal pain Extremities: no swelling, no pain Skin: no diaphoresis Yes all other systems are reviewed and are negative [facility] Past Medical History Medical History CKD (chronic kidney disease) stage 3, GFR 30-59 ml/min Diabetic neuropathy associated with type 2 diabetes mellitus Dyslipidemia Gout HTN (hypertension) 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 Social History Social History Household Members: Spouse Housing: House Alcohol intake: never Patient Tobacco Use Status: Former Tobacco user Years Smoked: QUIT 35 YEARS AGO e-Cigarette/Vaping Use: Never Used Advance Directives: Yes Advance Directives on File: Yes Advance Directives Date on File: 08/23/21 Current occupational status: retired Cognitive needs: No Hearing needs: No Vision needs: Yes Physical Exam Vital Signs: Vital Signs: Last Vital Signs Temp 97.8 F 12/22/21 19:47 Pulse 59 12/22/21 19:47 Resp 14 12/22/21 19:47 BP 143/53 H 12/22/21 19:47 Pulse Ox 143 H 12/22/21 19:47 O2 Del Method 12/22/21 19:47 BMI result Body Mass Index 30.0 General: Well-appearing well-nourished in no signs of distress HEENT: Normocephalic atraumatic Neck: No signs of JVD, no masses no tenderness or lymphadenopathy Cardiovascular: Regular rate and rhythm Respiratory: Clear to auscultation bilaterally Abdomen: Soft nontender no masses Extremities: Normal pedal pulses no signs of edema Skin: Dry warm no rashes Back: No tenderness full ROM MDM - SOB/Dyspnea MDM Narrative Medical decision making narrative: Patient hypoxic concern for mood I will get a x-ray patient has shortness breath with exertion will check a Bnp. BNP is normal patient still requiring oxygen. His creatinine can handle a CTA which will be ordered. CTA shows effusion with interstitial lung disease. I will give rocephin and doxycycline. I will admit to medicine. Differential Diagnosis Differential diagnosis: Likely acute exacerbation of chronic obstructive airways disease, congestive heart failure, pneumonia, asthma with exacerbation, pulmonary embolism, pleural effusion and anemia Medical Records Attestation: I reviewed the patient's medical records. Lab Data Attestation: I reviewed the patient's lab results. Result diagrams: 12/22/21 21:25 12/22/21 21:25 Labs: Lab Results 12/22/21 12/22/21 12/22/21 Range/Units 21:25 21:25 21:25 WBC 7.5 (4.8-10.8) X10*3/uL RBC 5.62 (4.60-5.80) X10*6/uL Hgb 15.5 (14.0-18.0) g/dl Hct 46.2 (42.0-52.0) % MCV 82.2 (80.0-98.0) fL MCH 27.6 (27.0-33.0) pg MCHC 33.5 (31.0-36.0) g/dl RDW 13.2 (11.0-16.0) % Plt Count 177 D (160-400) X10*3/uL MPV 10.0 (9.4-12.4) fL Immature Gran % (Auto) 0.4 (0.0-0.4) % Neut % (Auto) 66.0 (45-73) % Lymph % (Auto) 10.5 L (20-40) % [place] % (Auto) 15.9 H (2-11) % Eos % (Auto) 6.3 H (0-4) % Baso % (Auto) 0.9 (0-2) % Lymph # (Auto) 0.8 L (1.2-4.9) X10*3/uL [place] # (Auto) 1.2 (0.1-1.2) X10*3/uL Eos # (Auto) 0.5 H (0.0-0.4) X10*3/uL Baso # (Auto) 0.1 (0.0-0.2) X10*3/uL Abs Immat Gran (auto) 0.03 (0.00-0.03) X10*3/uL Absolute Neuts (auto) 5.0 (2.0-8.3) x10*3/uL Absolute Nucleated RBC 0.000 (0.0-0.012) X10*3/uL Nucleated RBC % (auto) 0.0 (0.0-0.2) /100WBC PT (10.0-13.1) SEC INR (0.9-1.1) Sodium 142 (135-145) mmol/L Potassium 3.8 (3.3-5.1) mmol/L Chloride 104 (96-108) mmol/L Carbon Dioxide 24 (22-29) mmol/L Anion Gap 18 (12-20) BUN 20 H (9-16) mg/dL Creatinine 1.37 (0.5-1.4) mg/dL Estim Creat Clear Calc 45.6 Estimated GFR 49 Random Glucose 77 D (60-115) mg/dL Lactic Acid 1.3 (0.5-2.0) mmol/L Calcium 9.4 D (8.4-10.2) mg/dL Total Bilirubin 1.0 (0.0-1.0) mg/dL Direct Bilirubin 0.4 (0.0-0.5) mg/dL AST 26 (5-37) U/L ALT 24 (0-40) U/L Alkaline Phosphatase 94 D (39-117) U/L Troponin I High Sens (<3.5-35.0) ng/L B-Natriuretic Peptide (<100) pg/mL Total Protein 7.0 (6.5-8.0) g/dL Albumin 3.9 (3.5-5.0) g/dL Lipase 41 (8-78) U/L Acetone, Qual (Negative) COVID-19 ([facility]) (Negative) COVID-19 Clin Com 12/22/21 12/22/21 12/22/21 Range/Units 21:25 21:25 21:25 WBC (4.8-10.8) X10*3/uL RBC (4.60-5.80) X10*6/uL Hgb (14.0-18.0) g/dl Hct (42.0-52.0) % MCV (80.0-98.0) fL MCH (27.0-33.0) pg MCHC (31.0-36.0) g/dl RDW (11.0-16.0) % Plt Count (160-400) X10*3/uL MPV (9.4-12.4) fL Immature Gran % (Auto) (0.0-0.4) % Neut % (Auto) (45-73) % Lymph % (Auto) (20-40) % [place] % (Auto) (2-11) % Eos % (Auto) (0-4) % Baso % (Auto) (0-2) % Lymph # (Auto) (1.2-4.9) X10*3/uL [place] # (Auto) (0.1-1.2) X10*3/uL Eos # (Auto) (0.0-0.4) X10*3/uL Baso # (Auto) (0.0-0.2) X10*3/uL Abs Immat Gran (auto) (0.00-0.03) X10*3/uL Absolute Neuts (auto) (2.0-8.3) x10*3/uL Absolute Nucleated RBC (0.0-0.012) X10*3/uL Nucleated RBC % (auto) (0.0-0.2) /100WBC PT 12.7 (10.0-13.1) SEC INR 1.1 (0.9-1.1) Sodium (135-145) mmol/L Potassium (3.3-5.1) mmol/L Chloride (96-108) mmol/L Carbon Dioxide (22-29) mmol/L Anion Gap (12-20) BUN (9-16) mg/dL Creatinine (0.5-1.4) mg/dL Estim Creat Clear Calc Estimated GFR Random Glucose (60-115) mg/dL Lactic Acid (0.5-2.0) mmol/L Calcium (8.4-10.2) mg/dL Total Bilirubin (0.0-1.0) mg/dL Direct Bilirubin (0.0-0.5) mg/dL AST (5-37) U/L ALT (0-40) U/L Alkaline Phosphatase (39-117) U/L Troponin I High Sens 11.9 (<3.5-35.0) ng/L B-Natriuretic Peptide (<100) pg/mL Total Protein (6.5-8.0) g/dL Albumin (3.5-5.0) g/dL Lipase (8-78) U/L Acetone, Qual Negative (Negative) COVID-19 ([facility]) (Negative) COVID-19 Clin Com 12/22/21 12/22/21 Range/Units 21:25 22:11 WBC (4.8-10.8) X10*3/uL RBC (4.60-5.80) X10*6/uL Hgb (14.0-18.0) g/dl Hct (42.0-52.0) % MCV (80.0-98.0) fL MCH (27.0-33.0) pg MCHC (31.0-36.0) g/dl RDW (11.0-16.0) % Plt Count (160-400) X10*3/uL MPV (9.4-12.4) fL Immature Gran % (Auto) (0.0-0.4) % Neut % (Auto) (45-73) % Lymph % (Auto) (20-40) % [place] % (Auto) (2-11) % Eos % (Auto) (0-4) % Baso % (Auto) (0-2) % Lymph # (Auto) (1.2-4.9) X10*3/uL [place] # (Auto) (0.1-1.2) X10*3/uL Eos # (Auto) (0.0-0.4) X10*3/uL Baso # (Auto) (0.0-0.2) X10*3/uL Abs Immat Gran (auto) (0.00-0.03) X10*3/uL Absolute Neuts (auto) (2.0-8.3) x10*3/uL Absolute Nucleated RBC (0.0-0.012) X10*3/uL Nucleated RBC % (auto) (0.0-0.2) /100WBC PT (10.0-13.1) SEC INR (0.9-1.1) Sodium (135-145) mmol/L Potassium (3.3-5.1) mmol/L Chloride (96-108) mmol/L Carbon Dioxide (22-29) mmol/L Anion Gap (12-20) BUN (9-16) mg/dL Creatinine (0.5-1.4) mg/dL Estim Creat Clear Calc Estimated GFR Random Glucose (60-115) mg/dL Lactic Acid (0.5-2.0) mmol/L Calcium (8.4-10.2) mg/dL Total Bilirubin (0.0-1.0) mg/dL Direct Bilirubin (0.0-0.5) mg/dL AST (5-37) U/L ALT (0-40) U/L Alkaline Phosphatase (39-117) U/L Troponin I High Sens (<3.5-35.0) ng/L B-Natriuretic Peptide 48 (<100) pg/mL Total Protein (6.5-8.0) g/dL Albumin (3.5-5.0) g/dL Lipase (8-78) U/L Acetone, Qual (Negative) COVID-19 ([facility]) Negative (Negative) COVID-19 Clin Com See Note ECG Data Attestation: I personally reviewed and interpreted this ECG as follows: ECG interpretation date: 12/22/21 ECG interpretation time: 21:25 Interpretation: Rate [address] with no obvious ST elevation or depression lots of artifact present. Discharge Plan Discharge Clinical Impression: Interstitial lung disease, Hypoxia, Pneumonia Patient Disposition: Admitted As Inpatient
[2021-12-22] MEDS: 0.9 % Sodium Chloride 1,000 ML 999 ML IV ×2 (21:23→23:47)
[2021-12-22 21:26] LABS: Basophils Absolute Auto 0.1 X10*3/uL (0.0-0.2); Basophils Percent Auto 0.9 % (0-2); Eosinophils Absolute Auto 0.5 X10*3/uL (0.0-0.4); Eosinophils Percent Auto 6.3 % (0-4); Hematocrit 46.2 % (42.0-52.0); Hemoglobin 15.5 g/dl (14.0-18.0); Imm Gran Abs Auto 0.03 X10*3/uL (0.00-0.03); Imm Gran Pct Auto 0.4 % (0.0-0.4); Lymphocytes Absolute Auto 0.8 X10*3/uL (1.2-4.9); Lymphocytes Percent Auto 10.5 % (20-40); MANUAL DIFF FLAG NO; Mean Corpuscular HGB Conc 33.5 g/dl (31.0-36.0); Mean Corpuscular Hemoglobin 27.6 pg (27.0-33.0); Mean Corpuscular Volume 82.2 fL (80.0-98.0); Monocytes Absolute Auto 1.2 X10*3/uL (0.1-1.2); Monocytes Percent Auto 15.9 % (2-11); Platelet Count 177 X10*3/uL (160-400); Red Blood Count 5.62 X10*6/uL (4.60-5.80); Red Cell Distribution Width 13.2 % (11.0-16.0); White Blood Count 7.5 X10*3/uL (4.8-10.8)
[2021-12-22 21:34] LABS: INTERNATIONAL NORM RATIO 1.1 (0.9-1.1); Prothrombin Time 12.7 SEC (10.0-13.1)
[2021-12-22 21:46] LABS: Lactic Acid 1.3 mmol/L (0.5-2.0)
[2021-12-22 21:50] LABS: Alanine Aminotransferase 24 U/L (0-40); Albumin Level 3.9 g/dL (3.5-5.0); Alkaline Phosphatase 94 U/L (39-117); Anion Gap 18 (12-20); Aspartate Amino Transferase 26 U/L (5-37); Bilirubin Direct 0.4 mg/dL (0.0-0.5); Blood Urea Nitrogen 20 mg/dL (9-16); Calcium 9.4 mg/dL (8.4-10.2); Carbon Dioxide 24 mmol/L (22-29); Chloride 104 mmol/L (96-108); Creatinine Clr Calc Pharmacy 45.6; Estimated Glomerular Filt Rate 49; Glucose Random 77 mg/dL (60-115); Lipase 41 U/L (8-78); Potassium 3.8 mmol/L (3.3-5.1); Sodium 142 mmol/L (135-145)
[2021-12-22 21:54] LABS: Acetone, serum QL Negative (Negative)
[2021-12-22 21:55] LABS: B Type Natriuretic Peptide 48 pg/mL (<100); Troponin-I High Sensitivity 11.9 ng/L (<3.5-35.0)
[2021-12-22] MEDS: iohexoL 350 MG/ML 100 ML INFUS..BTL IV (22:41)
[2021-12-22 22:44] LABS: COVID-19 Test Negative (Negative); IDNOW Serial# 9DB6401D
--- NOTE | 2021-12-22 22:49 | PHA.MEDREC ---
Pharmacy Consult ? Medication Reconciliation Pharmacy has completed the medication reconciliation.
[2021-12-22] MEDS: cefTRIAXone sodium 1 GM in 0.9 % Sodium Chloride 50 ML IV (23:47)
[2021-12-22 23:52] VITALS: BP 127/49; PULSE 62; RESP 15; O2SAT 89
[2021-12-23] VITALS (8 sets, daily range): BP systolic 120–144; BP diastolic 46–89; PULSE 58–77; RESP 14–24; TEMP 36.7–36.8; O2SAT 93–96
[2021-12-23 00:36] LABS: Appearance Urine Clear; Color Urine Yellow; Glucose Urine UA Negative (Negative); Leukocyte Esterase Urine Trace (Negative); Nitrite Urine Negative (Negative); Specific Gravity - Urine >= 1.030 (1.005-1.025); UMIC TRIGGER UACC YES; Urine Blood Moderate (2+) (Negative); Urine Ketones Negative (Negative); Urine Protein Trace mg/dL (Neg-Trace)
[2021-12-23 00:46] LABS: Bacteria Urine None Seen (None Seen); Hyaline Casts Urine 0-2 /LPF (0-2); RBC Urine >20 /HPF (0-2); Squamous Epithelial Cell Urine 0-2 /HPF (0-2); WBC Urine 0-5 /HPF (0-5)
--- NOTE | 2021-12-23 00:51 | PM.IMHP ---
History of Present Illness Date of Service: 12/23/21 Chief Complaint: Shortness of breath This is a 86-year-old male with a pertinent history of dementia, chronic kidney disease stage 3, essential hypertension, insulin-dependent diabetes mellitus who was brought to the emergency department by his for evaluation of shortness of breath. Patient is a poor historian and most of the history was obtained by the . Patient has been having shortness of breath for a while which worsened in the last 1 week. The shortness of breath is worse with exertion. also states that the patient has gotten progressively weaker over the last 1 week and his p.o. intake is reduced. No orthopnea or PND. Does have leg swelling which is chronic. No sick contacts. No fever, cough, chills, chest discomfort, palpitations. No pets at home including birds. No history of asthma or COPD. Patient does not have any associated symptoms. No blood loss. In the emergency department, patient was found to be hypoxemic and hospitalist group was consulted for admission. Review of Systems Review of Systems: Unable to obtain as patient is poor historian [facility] Medical History CKD (chronic kidney disease) stage 3, GFR 30-59 ml/min Diabetic neuropathy associated with type 2 diabetes mellitus Dyslipidemia Gout HTN (hypertension) Interstitial lung disease USP (current) use of insulin Non-toxic multinodular goiter Type 2 diabetes mellitus with chronic kidney disease Type 2 diabetes mellitus with diabetic neuropathy, unspecified Family History Father Pancreatic cancer Mother No problems noted. Surgical History Hx of cataract surgery Social History Household Members: Spouse Housing: House Alcohol intake: never Patient Tobacco Use Status: Former Tobacco user Years Smoked: QUIT 35 YEARS AGO e-Cigarette/Vaping Use: Never Used Advance Directives: Yes Advance Directives on File: Yes Advance Directives Date on File: 08/23/21 Current occupational status: retired Cognitive needs: No Hearing needs: No Vision needs: Yes Meds Allergies Allergy/AdvReac Type Severity Reaction Status Date / Time No Known Allergies Allergy Verified 12/05/21 20:35 [No Known Allergies*] Active Medications: Current Medications Acetaminophen (Acetaminophen 325 Mg Tablet) 650 mg PO Q6H PRN PRN Reason: Pain, Mild (Pain Scale 1-3) Amlodipine Besylate (Amlodipine Besylate 5 Mg Tablet) 5 mg PO DAILY [facility]; Protocol Benzonatate (Benzonatate 100 Mg Capsule) 100 mg PO TID PRN PRN Reason: Cough Dextrose (Dextrose 50 % 25 Gm/50 Ml Syringe) 25 gm IVPUSH Q15M PRN; Protocol PRN Reason: per Hypoglycemia Standing Ord. Enoxaparin Sodium (Enoxaparin Sodium 40 Mg/0.4 Ml Syringe) 40 mg SUBCUT Q24H [facility] Glucose (Glucose Gel 15 Gm Gel..Gram.) 15 gm PO Q15M PRN; Protocol PRN Reason: per Hypoglycemia Standing Ord. Hydralazine HCl (Hydralazine Hcl 25 Mg Tablet) 25 mg PO TID [facility]; Protocol Insulin Glargine (Insulin Glargine,Hum.Rec.Anlog 100 Unit/Ml 10 Ml Vial) 10 unit SUBCUT BEDTIME [facility] Insulin Human Lispro (Insulin Lispro 100 Unit/Ml 3 Ml Vial) 0 unit SUBCUT QIDACHS [facility]; Protocol Stop: 12/24/21 00:47 Melatonin (Melatonin 3 Mg Tablet) 6 mg PO BEDTIME PRN PRN Reason: Insomnia Memantine (Memantine Hcl 10 Mg Tablet) 10 mg PO BID [facility] Metoprolol Tartrate (Metoprolol Tartrate 50 Mg Tablet) 50 mg PO BID [facility]; Protocol Ondansetron HCl (Ondansetron Hcl 4 Mg/2 Ml Vial) 4 mg IVPUSH Q8H PRN PRN Reason: Nausea and Vomiting Pharmacy Consult (Consult Rx Perform Med Rec) 1 each MISCELLANE ONCE PRN PRN Reason: Consult order Pharmacy Consult (Consult Rx Perform Med Rec) 1 each MISCELLANE ONCE STA Stop: 12/22/21 23:51 Sodium Chloride (0.9 % Sodium Chloride Flush 3 Ml Syringe) 3 ml IVFLUSH QSHIFT [facility] Home Medications Medication Instructions Recorded Confirmed Last Taken Type blood sugar diagnostic #10 ea 01/29/20 10/25/21 Unknown History pen needle, diabetic 31 gauge x #50 ea 01/29/20 10/25/21 Unknown History /4 insulin lispro 100 unit/mL 10 unit subcut DAILY@1700 05/25/22 09/23/22 09/22/22 History subcutaneous pen (Humalog KwikPen (U-100) Insulin) hydralazine 25 mg tablet 25 mg PO TID 09/15/21 12/22/21 12/22/21 History febuxostat 40 mg tablet 40 mg PO DAILY 12/11/21 12/22/21 12/22/21 History Physical Exam Vital Signs and Narrative: Vital Signs: Last Vital Signs Temp 97.8 F 12/22/21 19:47 Pulse 62 12/22/21 23:52 Resp 15 12/22/21 23:52 BP 127/49 L 12/22/21 23:52 Pulse Ox 89 L 12/22/21 23:52 O2 Del Method 12/22/21 23:52 BMI result Body Mass Index 30.0 Elderly male lying in bed on 3 L supplemental oxygen Neck supple, no JVD Regular rate and rhythm, S1-S2 heard Reduced breath sounds at bases with inspiratory crackles, no wheezing appreciated Abdomen soft nontender, no guarding, no rigidity Patient is awake, alert and oriented to self, place, person, disoriented to time ; no focal motor deficit Psych: Normal mood Mild pedal edema Results Labs CBC and Chem 7: 12/22/21 21:25 12/22/21 21:25 Labs: Laboratory Results - last 24 hr 12/22/21 12/22/21 12/22/21 21:25 21:25 21:25 MCV 82.2 MCH 27.6 MCHC 33.5 RDW 13.2 Plt Count 177 D MPV 10.0 Immature Gran % (Auto) 0.4 Neut % (Auto) 66.0 Lymph % (Auto) 10.5 L [place] % (Auto) 15.9 H Eos % (Auto) 6.3 H Baso % (Auto) 0.9 Lymph # (Auto) 0.8 L [place] # (Auto) 1.2 Eos # (Auto) 0.5 H Baso # (Auto) 0.1 Abs Immat Gran (auto) 0.03 Absolute Neuts (auto) 5.0 Absolute Nucleated RBC 0.000 Nucleated RBC % (auto) 0.0 PT INR Anion Gap 18 Estim Creat Clear Calc 45.6 Estimated GFR 49 Random Glucose 77 D Lactic Acid 1.3 Calcium 9.4 D Total Bilirubin 1.0 Direct Bilirubin 0.4 AST 26 ALT 24 Alkaline Phosphatase 94 D B-Natriuretic Peptide Total Protein 7.0 Albumin 3.9 Lipase 41 Urine Color Urine Appearance Urine pH Ur Specific [place] Urine Protein Urine Glucose (UA) Urine Ketones Urine Blood Urine Nitrite Ur Leukocyte Esterase Urine RBC Urine WBC Ur Squamous Epith Cells Urine Bacteria Hyaline Casts Acetone, Qual COVID-19 ([facility]) COVID-19 Clin Com 12/22/21 12/22/21 12/22/21 21:25 21:25 21:25 MCV MCH MCHC RDW Plt Count MPV Immature Gran % (Auto) Neut % (Auto) Lymph % (Auto) [place] % (Auto) Eos % (Auto) Baso % (Auto) Lymph # (Auto) [place] # (Auto) Eos # (Auto) Baso # (Auto) Abs Immat Gran (auto) Absolute Neuts (auto) Absolute Nucleated RBC Nucleated RBC % (auto) PT 12.7 INR 1.1 Anion Gap Estim Creat Clear Calc Estimated GFR Random Glucose Lactic Acid Calcium Total Bilirubin Direct Bilirubin AST ALT Alkaline Phosphatase B-Natriuretic Peptide 48 Total Protein Albumin Lipase Urine Color Urine Appearance Urine pH Ur Specific [place] Urine Protein Urine Glucose (UA) Urine Ketones Urine Blood Urine Nitrite Ur Leukocyte Esterase Urine RBC Urine WBC Ur Squamous Epith Cells Urine Bacteria Hyaline Casts Acetone, Qual Negative COVID-19 ([facility]) COVID-19 Clin Com 12/22/21 12/23/21 22:11 00:30 MCV MCH MCHC RDW Plt Count MPV Immature Gran % (Auto) Neut % (Auto) Lymph % (Auto) [place] % (Auto) Eos % (Auto) Baso % (Auto) Lymph # (Auto) [place] # (Auto) Eos # (Auto) Baso # (Auto) Abs Immat Gran (auto) Absolute Neuts (auto) Absolute Nucleated RBC Nucleated RBC % (auto) PT INR Anion Gap Estim Creat Clear Calc Estimated GFR Random Glucose Lactic Acid Calcium Total Bilirubin Direct Bilirubin AST ALT Alkaline Phosphatase B-Natriuretic Peptide Total Protein Albumin Lipase Urine Color Yellow Urine Appearance Clear Urine pH 6.0 Ur Specific [place] >= 1.030 H Urine Protein Trace Urine Glucose (UA) Negative Urine Ketones Negative Urine Blood Moderate (2+) H Urine Nitrite Negative Ur Leukocyte Esterase Trace H Urine RBC >20 H Urine WBC 0-5 Ur Squamous Epith Cells 0-2 Urine Bacteria None Seen Hyaline Casts 0-2 Acetone, Qual COVID-19 ([facility]) Negative COVID-19 Clin Com See Note Imaging Radiologist's Impressions: Impressions Chest X-Ray 12/22/21 20:52 IMPRESSION: Increased patchy airspace disease and interstitial markings with a peripheral predominance suggesting underlying interstitial lung disease which has progressed from the 2020 examinations. Chest CTA 12/22/21 22:35 IMPRESSION: 1. No evidence of pulmonary emboli 2. Severe fibrotic interstitial disease with worsening interstitial edema, possibly superimposed vascular congestion-infectious etiologies cannot be excluded. VTE: negative Assessment and Plan (1) Hypoxia: Status: Acute (2) Interstitial lung disease: Status: Acute (3) Type 2 diabetes mellitus with diabetic neuropathy, unspecified: Qualifiers: Diabetes mellitus termite helper insulin use: with termite helper use Qualified Code(s): E11.40 - Type 2 diabetes mellitus with diabetic neuropathy, unspecified; Z79.4 - long term (current) use of insulin Status: Acute (4) HTN (hypertension): Status: Acute (5) USP (current) use of insulin: Status: Acute (6) CKD (chronic kidney disease) stage 3, GFR 30-59 ml/min: Status: Acute (7) Dementia: Status: Acute (8) Generalized weakness: Status: Acute Plan This is a 86-year-old male with a pertinent history of dementia, chronic kidney disease stage 3, essential hypertension, insulin-dependent diabetes mellitus who was brought to the emergency department by his for evaluation of shortness of breath. #. Acute hypoxemic respiratory failure -imaging with evidence of interstitial lung disease. Noted elevated eosinophils, ?eosinophilic pneumonia. Initiating a trial of steroids as eosinophils are known to be highly responsive to steroids. Consulting Pulmonary in the morning. Patient without signs or symptoms of bacterial superinfection, hold off on antibiotics. Monitor and wean oxygen as tolerated, maintain oxygen saturation greater than 92 %. #. Chronic kidney disease stage 3 -creatinine at baseline. Avoid nephrotoxins #. Type 2 insulin-dependent diabetes mellitus -reduce basal dose while in the hospital. Initiating Accu-Cheks with sliding scale insulin before meals and at bedtime. #. Essential hypertension -continue home medications #. Dementia -on memantine #. Chronic lower extremity edema -will benefit from compression stockings #. Generalized weakness -consulting Physical therapy to evaluate and treat #. Hematuria noted on UA -may have to repeat and workup as an outpatient DVT prophylaxis: Lovenox 40 mg daily Diet: Diabetic diet Full code Patient will require two night minimum hospital stay for evaluation and management of hypoxemic respiratory failure Quality Stroke Does the patient have a stroke diagnosis?: No VTE Prior VTE?: No VTE Risk Level:: Medical - moderate - high VTE Device Contraindication: Treatment Not Indicated VTE Drug Contraindication: N/A - Med Ordered
[2021-12-23 00:58] LABS: Procalcitonin 0.06 ng/mL
[2021-12-23] MEDS: hydrALAZINE HCl 25 MG TABLET PO ×4 (01:27→21:14)
[2021-12-23] MEDS: predniSONE 20 MG TABLET 60 MG PO ×2 (01:27→08:25)
[2021-12-23] MEDS: 0.9 % Sodium Chloride 250 ML 125 ML IV (01:28)
[2021-12-23] MEDS: Enoxaparin Sodium 40 MG/0.4 ML SYRINGE SUBCUT (01:34)
[2021-12-23 01:45] LABS: Glucose, Whole Blood 94 mg/dL (60-115)
--- NOTE | 2021-12-23 01:58 | PC.NURSE ---
Pt scheduled 10 Units Lantus held for POC 94, per Hospitalist
[2021-12-23 07:26] LABS: Glucose, Whole Blood 122 mg/dL (60-115)
[2021-12-23 07:31] LABS: MANUAL DIFF FLAG NO
[2021-12-23 07:40] LABS: Basophils Absolute Auto 0.1 X10*3/uL (0.0-0.2); Eosinophils Percent Auto 0.8 % (0-4); Hematocrit 42.3 % (42.0-52.0); Hemoglobin 13.9 g/dl (14.0-18.0); Imm Gran Abs Auto 0.01 X10*3/uL (0.00-0.03); Imm Gran Pct Auto 0.2 % (0.0-0.4); Lymphocytes Absolute Auto 0.6 X10*3/uL (1.2-4.9); Lymphocytes Percent Auto 11.3 % (20-40); Mean Corpuscular HGB Conc 32.9 g/dl (31.0-36.0); Mean Corpuscular Hemoglobin 27.9 pg (27.0-33.0); Mean Corpuscular Volume 84.8 fL (80.0-98.0); Mean Platelet Volume 9.5 fL (9.4-12.4); Monocytes Absolute Auto 0.1 X10*3/uL (0.1-1.2); Monocytes Percent Auto 2.3 % (2-11); Neutrophils Absolute Auto 4.1 x10*3/uL (2.0-8.3); Neutrophils Percent Auto 84.4 % (45-73); Platelet Count 179 X10*3/uL (160-400); Red Blood Count 4.99 X10*6/uL (4.60-5.80); Red Cell Distribution Width 13.3 % (11.0-16.0); White Blood Count 4.9 X10*3/uL (4.8-10.8)
[2021-12-23 07:57] LABS: Estimated Average Glucose 151 mg/dL; Hemoglobin A1c % 6.9 %
[2021-12-23 08:13] LABS: Anion Gap 15 (12-20); Blood Urea Nitrogen 21 mg/dL (9-16); Calcium 8.8 mg/dL (8.4-10.2); Carbon Dioxide 24 mmol/L (22-29); Chloride 107 mmol/L (96-108); Creatinine Clr Calc Pharmacy 39.7; Estimated Glomerular Filt Rate 42; Glucose Random 150 mg/dL (60-115); Potassium 4.4 mmol/L (3.3-5.1); Sodium 142 mmol/L (135-145)
[2021-12-23] MEDS: Memantine HCl 10 MG TABLET PO ×2 (08:25→21:14)
[2021-12-23] MEDS: Metoprolol Tartrate 50 MG TABLET PO (08:27)
[2021-12-23] MEDS: amLODIPine Besylate 5 MG TABLET PO (08:35)
[2021-12-23] MEDS: 0.9 % Sodium Chloride Flush 3 ML SYRINGE IVFLUSH ×2 (08:36→15:51)
--- NOTE | 2021-12-23 09:49 | PC.NURSE ---
PT A&Ox3, VSS, on 4L of NC, crackles on oscultation, denies pain, no complaints. PT evaluated by physical therapy. Pulmonary Consult by Dr. Anaya.
--- NOTE | 2021-12-23 11:30 | PC.NURSE ---
pt's at bedside, voiced concerns of needing help at home to take care of pt when he gets d/c'd home. this pattern chart writer notified Judy, Ceo & Board Director to touch base with the pt and his . pt's remains at bedside.
[2021-12-23 13:07] LABS: Glucose, Whole Blood 266 mg/dL (60-115)
[2021-12-23] MEDS: Insulin Lispro 100 UNIT/ML 3 ML VIAL SUBCUT ×3 (13:10→21:15)
[2021-12-23 13:45] LABS: Glucose, Whole Blood 222 mg/dL (60-115)
--- NOTE | 2021-12-23 14:35 | P.PNIM_ITS ---
Subjective Subjective Date of Service: 12/23/21 Interval History: sob Patient seen by hospitalist team this morning, seen and examined again. Review of Systems Still feel somewhat short of breath with talking. Denies any cough Denies any chest pain or abdominal pain or nausea vomiting Physical Exam Vital Signs: Vital Signs: Last Vital Signs Temp 97.8 F 12/22/21 19:47 Pulse 58 12/23/21 13:12 Resp 22 H 12/23/21 13:12 BP 131/51 L 12/23/21 13:12 Pulse Ox 95 12/23/21 13:12 O2 Del Method 12/23/21 13:12 O2 Flow Rate 4 12/23/21 13:12 BMI result Body Mass Index 30.0 Unchanged from this morning. Objective Data Active Medications Acetaminophen (Acetaminophen 325 Mg Tablet) 650 mg PO Q6H PRN PRN Reason: Pain, Mild (Pain Scale 1-3) Amlodipine Besylate (Amlodipine Besylate 5 Mg Tablet) 5 mg PO DAILY [facility]; Protocol Last Admin: 12/23/21 08:35 Dose: 5 mg Documented By: GIANCARLO Atorvastatin Calcium (Atorvastatin Calcium 40 Mg Tablet) 40 mg PO BEDTIME [facility] Benzonatate (Benzonatate 100 Mg Capsule) 100 mg PO TID PRN PRN Reason: Cough Calcium Carbonate (Calcium Carbonate 500 Mg Tablet) 500 mg PO DAILY [facility] Last Admin: 12/23/21 09:26 Dose: 500 mg Documented By: GIANCARLO Dextrose (Dextrose 50 % 25 Gm/50 Ml Syringe) 25 gm IVPUSH Q15M PRN; Protocol PRN Reason: per Hypoglycemia Standing Ord. Enoxaparin Sodium (Enoxaparin Sodium 40 Mg/0.4 Ml Syringe) 40 mg SUBCUT Q24H [facility] Last Admin: 12/23/21 01:34 Dose: 40 mg Documented By: DANAY Glucose (Glucose Gel 15 Gm Gel..Gram.) 15 gm PO Q15M PRN; Protocol PRN Reason: per Hypoglycemia Standing Ord. Hydralazine HCl (Hydralazine Hcl 25 Mg Tablet) 25 mg PO TID [facility]; Protocol Last Admin: 12/23/21 08:28 Dose: 25 mg Documented By: GIANCARLO Insulin Glargine (Insulin Glargine,Hum.Rec.Anlog 100 Unit/Ml 10 Ml Vial) 10 unit SUBCUT BEDTIME [facility] Last Admin: 12/23/21 01:57 Dose: Not Given Documented By: DANAY Non-Admin Reason: No Insulin Coverage Insulin Human Lispro (Insulin Lispro 100 Unit/Ml 3 Ml Vial) 0.1 - 10 unit SUBCUT QIDACHS [facility]; Protocol Stop: 12/24/21 00:47 Last Admin: 12/23/21 13:10 Dose: 6 unit Documented By: GIANCARLO Melatonin (Melatonin 3 Mg Tablet) 6 mg PO BEDTIME PRN PRN Reason: Insomnia Memantine (Memantine Hcl 10 Mg Tablet) 10 mg PO BID [facility] Last Admin: 12/23/21 08:25 Dose: 10 mg Documented By: GIANCARLO Metoprolol Tartrate (Metoprolol Tartrate 50 Mg Tablet) 50 mg PO BID [facility]; Protocol Last Admin: 12/23/21 08:27 Dose: 50 mg Documented By: GIANCARLO Ondansetron HCl (Ondansetron Hcl 4 Mg/2 Ml Vial) 4 mg IVPUSH Q8H PRN PRN Reason: Nausea and Vomiting Pharmacy Consult (Consult Rx Perform Med Rec) 1 each MISCELLANE ONCE PRN PRN Reason: Consult order Prednisone (Prednisone 20 Mg Tablet) 60 mg PO DAILY [facility] Last Admin: 12/23/21 08:25 Dose: 60 mg Documented By: GIANCARLO Sodium Chloride (0.9 % Sodium Chloride Flush 3 Ml Syringe) 3 ml IVFLUSH QSHIFT [facility] Last Admin: 12/23/21 08:36 Dose: 3 ml Documented By: GIANCARLO Labs CBC & Chem 7: 12/23/21 07:22 12/23/21 07:22 Labs: Laboratory Results - last 24 hr 12/22/21 12/22/21 12/22/21 00:28 21:25 21:25 MCV 82.2 MCH 27.6 MCHC 33.5 RDW 13.2 Plt Count 177 D MPV 10.0 Immature Gran % (Auto) 0.4 Neut % (Auto) 66.0 Lymph % (Auto) 10.5 L [place] % (Auto) 15.9 H Eos % (Auto) 6.3 H Baso % (Auto) 0.9 Lymph # (Auto) 0.8 L [place] # (Auto) 1.2 Eos # (Auto) 0.5 H Baso # (Auto) 0.1 Abs Immat Gran (auto) 0.03 Absolute Neuts (auto) 5.0 Absolute Nucleated RBC 0.000 Nucleated RBC % (auto) 0.0 PT INR Anion Gap 18 Estim Creat Clear Calc 45.6 Estimated GFR 49 POC Glucose Random Glucose 77 D Estimat Average Glucose Hemoglobin A1c % Lactic Acid Calcium 9.4 D Total Bilirubin 1.0 Direct Bilirubin 0.4 AST 26 ALT 24 Alkaline Phosphatase 94 D B-Natriuretic Peptide Total Protein 7.0 Albumin 3.9 Lipase 41 Procalcitonin 0.06 Urine Color Urine Appearance Urine pH Ur Specific [place] Urine Protein Urine Glucose (UA) Urine Ketones Urine Blood Urine Nitrite Ur Leukocyte Esterase Urine RBC Urine WBC Ur Squamous Epith Cells Urine Bacteria Hyaline Casts Acetone, Qual COVID-19 ([facility]) COVID-19 Flutter 12/22/21 12/22/21 12/22/21 21:25 21:25 21:25 MCV MCH MCHC RDW Plt Count MPV Immature Gran % (Auto) Neut % (Auto) Lymph % (Auto) [place] % (Auto) Eos % (Auto) Baso % (Auto) Lymph # (Auto) [place] # (Auto) Eos # (Auto) Baso # (Auto) Abs Immat Gran (auto) Absolute Neuts (auto) Absolute Nucleated RBC Nucleated RBC % (auto) PT 12.7 INR 1.1 Anion Gap Estim Creat Clear Calc Estimated GFR POC Glucose Random Glucose Estimat Average Glucose Hemoglobin A1c % Lactic Acid 1.3 Calcium Total Bilirubin Direct Bilirubin AST ALT Alkaline Phosphatase B-Natriuretic Peptide Total Protein Albumin Lipase Procalcitonin Urine Color Urine Appearance Urine pH Ur Specific [place] Urine Protein Urine Glucose (UA) Urine Ketones Urine Blood Urine Nitrite Ur Leukocyte Esterase Urine RBC Urine WBC Ur Squamous Epith Cells Urine Bacteria Hyaline Casts Acetone, Qual Negative COVID-19 ([facility]) COVID-19 Flutter 12/22/21 12/22/21 12/23/21 21:25 22:11 00:30 MCV MCH MCHC RDW Plt Count MPV Immature Gran % (Auto) Neut % (Auto) Lymph % (Auto) [place] % (Auto) Eos % (Auto) Baso % (Auto) Lymph # (Auto) [place] # (Auto) Eos # (Auto) Baso # (Auto) Abs Immat Gran (auto) Absolute Neuts (auto) Absolute Nucleated RBC Nucleated RBC % (auto) PT INR Anion Gap Estim Creat Clear Calc Estimated GFR POC Glucose Random Glucose Estimat Average Glucose Hemoglobin A1c % Lactic Acid Calcium Total Bilirubin Direct Bilirubin AST ALT Alkaline Phosphatase B-Natriuretic Peptide 48 Total Protein Albumin Lipase Procalcitonin Urine Color Yellow Urine Appearance Clear Urine pH 6.0 Ur Specific [place] >= 1.030 H Urine Protein Trace Urine Glucose (UA) Negative Urine Ketones Negative Urine Blood Moderate (2+) H Urine Nitrite Negative Ur Leukocyte Esterase Trace H Urine RBC >20 H Urine WBC 0-5 Ur Squamous Epith Cells 0-2 Urine Bacteria None Seen Hyaline Casts 0-2 Acetone, Qual COVID-19 ([facility]) Negative COVID-19 Clin Com See Note 12/23/21 12/23/21 12/23/21 01:15 01:41 07:22 MCV MCH MCHC RDW Plt Count MPV Immature Gran % (Auto) Neut % (Auto) Lymph % (Auto) [place] % (Auto) Eos % (Auto) Baso % (Auto) Lymph # (Auto) [place] # (Auto) Eos # (Auto) Baso # (Auto) Abs Immat Gran (auto) Absolute Neuts (auto) Absolute Nucleated RBC Nucleated RBC % (auto) PT INR Anion Gap 15 Estim Creat Clear Calc 39.7 Estimated GFR 42 POC Glucose 94 Random Glucose 150 H D Estimat Average Glucose 151 Hemoglobin A1c % 6.9 Lactic Acid Calcium 8.8 D Total Bilirubin Direct Bilirubin AST ALT Alkaline Phosphatase B-Natriuretic Peptide Total Protein Albumin Lipase Procalcitonin Urine Color Urine Appearance Urine pH Ur Specific [place] Urine Protein Urine Glucose (UA) Urine Ketones Urine Blood Urine Nitrite Ur Leukocyte Esterase Urine RBC Urine WBC Ur Squamous Epith Cells Urine Bacteria Hyaline Casts Acetone, Qual COVID-19 ([facility]) COVID-19 Clin Com 12/23/21 12/23/21 12/23/21 07:22 07:23 13:04 MCV 84.8 MCH 27.9 MCHC 32.9 RDW 13.3 Plt Count 179 MPV 9.5 Immature Gran % (Auto) 0.2 Neut % (Auto) 84.4 H Lymph % (Auto) 11.3 L [place] % (Auto) 2.3 Eos % (Auto) 0.8 Baso % (Auto) 1.0 Lymph # (Auto) 0.6 L [place] # (Auto) 0.1 Eos # (Auto) 0.0 Baso # (Auto) 0.1 Abs Immat Gran (auto) 0.01 Absolute Neuts (auto) 4.1 Absolute Nucleated RBC 0.000 Nucleated RBC % (auto) 0.0 PT INR Anion Gap Estim Creat Clear Calc Estimated GFR POC Glucose 122 H 266 H Random Glucose Estimat Average Glucose Hemoglobin A1c % Lactic Acid Calcium Total Bilirubin Direct Bilirubin AST ALT Alkaline Phosphatase B-Natriuretic Peptide Total Protein Albumin Lipase Procalcitonin Urine Color Urine Appearance Urine pH Ur Specific [place] Urine Protein Urine Glucose (UA) Urine Ketones Urine Blood Urine Nitrite Ur Leukocyte Esterase Urine RBC Urine WBC Ur Squamous Epith Cells Urine Bacteria Hyaline Casts Acetone, Qual COVID-19 ([facility]) COVID-19 Clin Com 12/23/21 13:42 MCV MCH MCHC RDW Plt Count MPV Immature Gran % (Auto) Neut % (Auto) Lymph % (Auto) [place] % (Auto) Eos % (Auto) Baso % (Auto) Lymph # (Auto) [place] # (Auto) Eos # (Auto) Baso # (Auto) Abs Immat Gran (auto) Absolute Neuts (auto) Absolute Nucleated RBC Nucleated RBC % (auto) PT INR Anion Gap Estim Creat Clear Calc Estimated GFR POC Glucose 222 H Random Glucose Estimat Average Glucose Hemoglobin A1c % Lactic Acid Calcium Total Bilirubin Direct Bilirubin AST ALT Alkaline Phosphatase B-Natriuretic Peptide Total Protein Albumin Lipase Procalcitonin Urine Color Urine Appearance Urine pH Ur Specific [place] Urine Protein Urine Glucose (UA) Urine Ketones Urine Blood Urine Nitrite Ur Leukocyte Esterase Urine RBC Urine WBC Ur Squamous Epith Cells Urine Bacteria Hyaline Casts Acetone, Qual COVID-19 ([facility]) COVID-19 Clin Com Assessment and Plan (1) Interstitial lung disease: Status: Acute (2) Hypoxia: Status: Acute (3) Type 2 diabetes mellitus with diabetic neuropathy, unspecified: Status: Acute (4) CKD (chronic kidney disease) stage 3, GFR 30-59 ml/min: Status: Acute Plan ?86-year-old male with a pertinent history of dementia, chronic kidney disease stage 3, essential hypertension, insulin-dependent diabetes mellitus who was brought to the emergency department by his for evaluation of shortness of breath. #? Acute hypoxemic respiratory failure possible sec-imaging with evidence of interstitial lung disease. sob with talkin Patient without signs or symptoms of bacterial superinfection, hold off on antibiotics.? Monitor and wean oxygen as tolerated, maintain oxygen saturation greater than 92 %. pulm eval #.? Chronic kidney disease stage 3 -creatinine at baseline.? Avoid nephrotoxins #.? Type 2 insulin-dependent diabetes mellitus,mild hyperglycemia sec to steriods -continue lantus,fs with sliding scale coverage. #.? Essential hypertension -continue home medications #.? Dementia -on memantine #.? Chronic lower extremity edema -will benefit from compression stockings #.? Generalized weakness -consulting Physical therapy to evaluate and treat #.? Hematuria noted on UA -may have to repeat and workup as an outpatient obese: weight loss DVT prophylaxis: Lovenox 40 mg daily Quality Stroke Does the patient have a stroke diagnosis?: No VTE Prior VTE?: No VTE Risk Level:: Medical - moderate - high VTE Device Contraindication: Treatment Not Indicated VTE Drug Contraindication: N/A - Med Ordered
[2021-12-23 18:28] LABS: Glucose, Whole Blood 221 mg/dL (60-115)
--- NOTE | 2021-12-23 18:41 | PC.NURSE ---
Report attempted RN to call back.
--- NOTE | 2021-12-23 18:56 | PC.NURSE ---
Report given to RN.
[2021-12-23 20:46] LABS: Glucose, Whole Blood 208 mg/dL (60-115)
[2021-12-23] MEDS: Atorvastatin Calcium 40 MG TABLET PO (21:14)
[2021-12-23] MEDS: Insulin Glargine,Hum.rec.anlog 100 UNIT/ML 10 ML VIAL 10 UNIT SUBCUT (21:16)
[2021-12-24] MEDS: Enoxaparin Sodium 40 MG/0.4 ML SYRINGE SUBCUT (01:01)
[2021-12-24] MEDS: 0.9 % Sodium Chloride Flush 3 ML SYRINGE IVFLUSH ×4 (01:02→20:27)
[2021-12-24 07:28] VITALS: BP 185/78; PULSE 70; RESP 22; TEMP 36.2; O2SAT 93
[2021-12-24 07:48] LABS: Glucose, Whole Blood 164 mg/dL (60-115)
[2021-12-24] MEDS: Insulin Lispro 100 UNIT/ML 3 ML VIAL SUBCUT ×4 (07:50→20:22)
[2021-12-24] MEDS: hydrALAZINE HCl 25 MG TABLET PO (07:50)
[2021-12-24] MEDS: Memantine HCl 10 MG TABLET PO ×2 (07:50→20:15)
[2021-12-24] MEDS: predniSONE 20 MG TABLET 60 MG PO (07:50)
[2021-12-24] MEDS: Metoprolol Succinate ER 50 MG TAB.ER.24H PO (07:50)
[2021-12-24] MEDS: amLODIPine Besylate 10 MG TABLET PO (10:19)
[2021-12-24 10:57] VITALS: BP 162/71; PULSE 58; RESP 18; TEMP 36.4; O2SAT 93
[2021-12-24 11:33] LABS: Glucose, Whole Blood 178 mg/dL (60-115)
--- NOTE | 2021-12-24 11:53 | P.CONPL_ITS ---
History of Present Illness History of Present Illness Consult date: 12/24/21 Chief complaint: acute hypoxic respiratory failure Narrative: This is an inpatient pulmonary consultation. The patient is a 86-year-old male with a pertinent history of dementia, chronic kidney disease stage 3, essential hypertension, insulin-dependent diabetes mellitus who was brought to the emergency department by his for evaluation of shortness of breath.? Patient is a poor historian and most of the history was obtained by the .? Patient has been having shortness of breath for a while which worsened in the last 1 week.? The shortness of breath is worse with exertion.? also states that the patient has gotten progressively weaker over the last 1 week and his p.o. intake is reduced.? No orthopnea or PND.? Does have leg swelling which is chronic.? No sick contacts.? No fever, cough, chills, chest discomfort, palpitations.? No pets at home including birds.? No history of asthma or COPD.? Patient does not have any associated symptoms.?He did undergo a CTA r/o PE. I did personally reviewed both CT chest from 2019 and recent CTA. There is interval worsening pulmonary fibrosis with GGO/pneumonitis. Bloodwork with +eosinophils. He had a complete workup intially in 2019 with only a slight +SABRINA. He is on Prednisone and oxygen and he feels better. Review of Systems Review of Systems: Review of systems: General: Patient denies any fever chills recent illness or falls Musculoskeletal: Denies back pain or body aches or other injuries HEENT: denies headache, runny nose, ear pain Respiratory: denies shortness of breath, cough Cardiovascular: no chest pain or palpitations : denies dysuria, frequency Abdomen: no nausea vomiting denies abdominal pain Extremities: no swelling, no pain Skin: no diaphoresis Yes all other systems are reviewed and are negative [facility] Past Medical History Medical History (Updated 12/24/21 @ 12:00 by Josh Julian MD) CKD (chronic kidney disease) stage 3, GFR 30-59 ml/min Diabetic neuropathy associated with type 2 diabetes mellitus Dyslipidemia Gout HTN (hypertension) 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 Surgical History Surgical History Hx of cataract surgery Social History Social History Household Members: Spouse Housing: House Do you presently have visiting nurse or other home services: No Alcohol intake: never Patient Tobacco Use Status: Former Tobacco user Years Smoked: QUIT 35 YEARS AGO e-Cigarette/Vaping Use: Never Used Use of substances other than those prescribed or required for medical reasons: No Currently Displaying Signs/Symptoms of Drug Intoxication Withdrawal: No Have you been hit, kicked, punched, or otherwise hurt by someone within the past year? If so, by whom?: No Do you feel safe in your current relationship?: Yes Is there a partner from a previous relationship who is making you feel unsafe now?: No Are you made to feel afraid or neglected: No [employer] Healthcare Practices: baptism Advance Directives: Yes Advance Directives on File: Yes Advance Directives Date on File: 08/23/21 Do you have thoughts of harming others: None Do you have a plan to hurt others: No Plan Recently lost weight without trying: No Nutrition Risks: No Nutritional Risk Current occupational status: retired Cognitive needs: No Hearing needs: No Vision needs: Yes Meds Allergies Allergy/AdvReac Type Severity Reaction Status Date / Time No Known Allergies Allergy Verified 12/05/21 20:35 [No Known Allergies*] Active Medications: Current Medications Acetaminophen (Acetaminophen 325 Mg Tablet) 650 mg PO Q6H PRN PRN Reason: Pain, Mild (Pain Scale 1-3) Amlodipine Besylate (Amlodipine Besylate 10 Mg Tablet) 10 mg PO DAILY JI; Protocol Last Admin: 12/24/21 10:19 Dose: 10 mg Atorvastatin Calcium (Atorvastatin Calcium 40 Mg Tablet) 40 mg PO BEDTIME [facility] Last Admin: 12/23/21 21:14 Dose: 40 mg Benzonatate (Benzonatate 100 Mg Capsule) 100 mg PO TID PRN PRN Reason: Cough Calcium Carbonate (Calcium Carbonate 500 Mg Tablet) 500 mg PO DAILY [facility]I Last Admin: 12/24/21 07:50 Dose: 500 mg Dextrose (Dextrose 50 % 25 Gm/50 Ml Syringe) 25 gm IVPUSH Q15M PRN; Protocol PRN Reason: per Hypoglycemia Standing Ord. Dextrose (Dextrose 50 % 25 Gm/50 Ml Syringe) 25 gm IVPUSH Q15M PRN; Protocol PRN Reason: per Hypoglycemia Standing Ord. Enoxaparin Sodium (Enoxaparin Sodium 40 Mg/0.4 Ml Syringe) 40 mg SUBCUT Q24H [facility] Last Admin: 12/24/21 01:01 Dose: 40 mg Glucose (Glucose Gel 15 Gm Gel..Gram.) 15 gm PO Q15M PRN; Protocol PRN Reason: per Hypoglycemia Standing Ord. Glucose (Glucose Gel 15 Gm Gel..Gram.) 15 gm PO Q15M PRN; Protocol PRN Reason: per Hypoglycemia Standing Ord. Hydralazine HCl (Hydralazine Hcl 25 Mg Tablet) 25 mg PO TID [facility]; Protocol Last Admin: 12/24/21 07:50 Dose: 25 mg Insulin Glargine (Insulin Glargine,Hum.Rec.Anlog 100 Unit/Ml 10 Ml Vial) 10 unit SUBCUT BEDTIME [facility] Last Admin: 12/23/21 21:16 Dose: 10 unit Insulin Human Lispro (Insulin Lispro 100 Unit/Ml 3 Ml Vial) 0 unit SUBCUT QIDACHS [facility]; Protocol Last Admin: 12/24/21 07:50 Dose: 2 unit Melatonin (Melatonin 3 Mg Tablet) 6 mg PO BEDTIME PRN PRN Reason: Insomnia Memantine (Memantine Hcl 10 Mg Tablet) 10 mg PO BID [facility] Last Admin: 12/24/21 07:50 Dose: 10 mg Metoprolol Succinate (Metoprolol Succinate Er 50 Mg Tab.Er.24h) 50 mg PO DAILY [facility]; Protocol Last Admin: 12/24/21 07:50 Dose: 50 mg Non-Formulary Medication (Febuxostat) 40 mg PO DAILY [facility] Ondansetron HCl (Ondansetron Hcl 4 Mg/2 Ml Vial) 4 mg IVPUSH Q8H PRN PRN Reason: Nausea and Vomiting Pharmacy Consult (Consult Rx Perform Med Rec) 1 each MISCELLANE ONCE PRN PRN Reason: Consult order Prednisone (Prednisone 20 Mg Tablet) 60 mg PO DAILY [facility] Last Admin: 12/24/21 07:50 Dose: 60 mg Sodium Chloride (0.9 % Sodium Chloride Flush 3 Ml Syringe) 3 ml IVFLUSH QSHIFT [facility] Last Admin: 12/24/21 07:51 Dose: 3 ml Home Medications Medication Instructions Recorded Confirmed Last Taken Type blood sugar diagnostic #10 ea 01/29/20 10/25/21 Unknown History pen needle, diabetic 31 gauge x #50 ea 01/29/20 10/25/21 Unknown History 1/4 insulin lispro 100 unit/mL 10 unit subcut DAILY@1700 08/23/21 12/22/21 12/21/21 History subcutaneous pen (Humalog KwikPen (U-100) Insulin) hydralazine 25 mg tablet 25 mg PO TID 09/15/21 12/22/21 12/22/21 History febuxostat 40 mg tablet 40 mg PO DAILY 12/11/21 12/22/21 12/22/21 History Physical Exam Vital Signs: Vital Signs: Last Vital Signs Temp 97.5 F 12/24/21 10:57 Pulse 58 12/24/21 10:57 Resp 18 12/24/21 10:57 BP 162/71 H 12/24/21 10:57 Pulse Ox 93 12/24/21 10:57 O2 Del Method 12/24/21 10:57 O2 Flow Rate 4 12/24/21 10:57 BMI result Body Mass Index 30.0 General: Well-appearing well-nourished in no signs of distress HEENT: Normocephalic atraumatic Neck: No signs of JVD, no masses no tenderness or lymphadenopathy Cardiovascular: Regular rate and rhythm Respiratory: +crackles Abdomen: Soft nontender no masses Extremities: Normal pedal pulses no signs of edema Skin: Dry warm no rashes Back: No tenderness full ROM Results Laboratory Findings CBC and BMP: 12/23/21 07:22 12/23/21 07:22 ABG, PT/INR, D-dimer: PT/INR, D-dimer PT 12.7 SEC (10.0-13.1) 12/22/21 21:25 INR 1.1 (0.9-1.1) 12/22/21 21:25 Abnormal lab findings: Abnormal Labs 12/22/21 12/22/21 12/23/21 21:25 21:25 00:30 Hgb Neut % (Auto) Lymph % (Auto) 10.5 L [place] % (Auto) 15.9 H Eos % (Auto) 6.3 H Lymph # (Auto) 0.8 L Eos # (Auto) 0.5 H BUN 20 H Creatinine POC Glucose Random Glucose Ur Specific [place] >= 1.030 H Urine Blood Moderate (2+) H Ur Leukocyte Esterase Trace H Urine RBC >20 H 12/23/21 12/23/21 12/23/21 07:22 07:22 07:23 Hgb 13.9 L Neut % (Auto) 84.4 H Lymph % (Auto) 11.3 L [place] % (Auto) Eos % (Auto) Lymph # (Auto) 0.6 L Eos # (Auto) BUN 21 H Creatinine 1.57 H POC Glucose 122 H Random Glucose 150 H D Ur Specific [place] Urine Blood Ur Leukocyte Esterase Urine RBC 12/23/21 12/23/21 12/23/21 13:04 13:42 18:25 Hgb Neut % (Auto) Lymph % (Auto) [place] % (Auto) Eos % (Auto) Lymph # (Auto) Eos # (Auto) BUN Creatinine POC Glucose 266 H 222 H 221 H Random Glucose Ur Specific [place] Urine Blood Ur Leukocyte Esterase Urine RBC 12/23/21 12/24/21 12/24/21 20:39 07:22 11:00 Hgb Neut % (Auto) Lymph % (Auto) [place] % (Auto) Eos % (Auto) Lymph # (Auto) Eos # (Auto) BUN Creatinine POC Glucose 208 H 164 H 178 H Random Glucose Ur Specific [place] Urine Blood Ur Leukocyte Esterase Urine RBC Microbiology: Microbiology 12/22/21 22:11 Blood - Venous Blood Culture - Preliminary No growth after 24 hours. 12/22/21 21:25 Blood - Venous Blood Culture - Preliminary No growth after 24 hours. 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 IPF is in the differential. REC: continue oxygen to keep pox>92% Continue Prednisone 60mg, taper by 10mg every week until on 20mg daily Additional bloodwork Should discontinue Hydralazine repeat CXR Will need Pulmonary F/U Procedures Date of Service Date of Service: 12/24/21
--- NOTE | 2021-12-24 13:09 | P.PNIM_ITS ---
Subjective Subjective Date of Service: 12/24/21 Interval History: sob still with minimal excersion has dry cough no fevers Review of Systems Still feel somewhat short of breath with talking. Denies any cough Denies any chest pain or abdominal pain or nausea vomiting Physical Exam Vital Signs: Vital Signs: Last Vital Signs Temp 97.5 F 12/24/21 10:57 Pulse 58 12/24/21 10:57 Resp 18 12/24/21 10:57 BP 162/71 H 12/24/21 10:57 Pulse Ox 93 12/24/21 10:57 O2 Del Method 12/24/21 10:57 O2 Flow Rate 2 12/24/21 10:57 BMI result Body Mass Index 30.0 Appearance: Alert.? Oriented X3.?sob cvs: rrr, [id number] , no murmur res: air entry diminshed at bases,has rhinchii/few dr cracles at bases. abd: no rebound or guarding ,nt, bs present. ext pulses present , no cyanosis . neuro: axo3 , nonfocal. Objective Data Active Medications Acetaminophen (Acetaminophen 325 Mg Tablet) 650 mg PO Q6H PRN PRN Reason: Pain, Mild (Pain Scale 1-3) Amlodipine Besylate (Amlodipine Besylate 10 Mg Tablet) 10 mg PO DAILY [facility]; Protocol Last Admin: 12/24/21 10:19 Dose: 10 mg Documented By: LELAND Atorvastatin Calcium (Atorvastatin Calcium 40 Mg Tablet) 40 mg PO BEDTIME [facility] Last Admin: 12/23/21 21:14 Dose: 40 mg Documented By: ALCIDES Benzonatate (Benzonatate 100 Mg Capsule) 100 mg PO TID PRN PRN Reason: Cough Calcium Carbonate (Calcium Carbonate 500 Mg Tablet) 500 mg PO DAILY [facility] Last Admin: 12/24/21 07:50 Dose: 500 mg Documented By: LELAND Dextrose (Dextrose 50 % 25 Gm/50 Ml Syringe) 25 gm IVPUSH Q15M PRN; Protocol PRN Reason: per Hypoglycemia Standing Ord. Dextrose (Dextrose 50 % 25 Gm/50 Ml Syringe) 25 gm IVPUSH Q15M PRN; Protocol PRN Reason: per Hypoglycemia Standing Ord. Enoxaparin Sodium (Enoxaparin Sodium 40 Mg/0.4 Ml Syringe) 40 mg SUBCUT Q24H [facility] Last Admin: 12/24/21 01:01 Dose: 40 mg Documented By: MELVA Glucose (Glucose Gel 15 Gm Gel..Gram.) 15 gm PO Q15M PRN; Protocol PRN Reason: per Hypoglycemia Standing Ord. Glucose (Glucose Gel 15 Gm Gel..Gram.) 15 gm PO Q15M PRN; Protocol PRN Reason: per Hypoglycemia Standing Ord. Hydralazine HCl (Hydralazine Hcl 25 Mg Tablet) 25 mg PO TID [facility]; Protocol Last Admin: 12/24/21 07:50 Dose: 25 mg Documented By: LELAND Insulin Glargine (Insulin Glargine,Hum.Rec.Anlog 100 Unit/Ml 10 Ml Vial) 10 unit SUBCUT BEDTIME [facility] Last Admin: 12/23/21 21:16 Dose: 10 unit Documented By: ALCIDES Insulin Human Lispro (Insulin Lispro 100 Unit/Ml 3 Ml Vial) 0 unit SUBCUT QIDACHS [facility]; Protocol Last Admin: 12/24/21 12:04 Dose: 2 unit Documented By: LELAND Melatonin (Melatonin 3 Mg Tablet) 6 mg PO BEDTIME PRN PRN Reason: Insomnia Memantine (Memantine Hcl 10 Mg Tablet) 10 mg PO BID [facility] Last Admin: 12/24/21 07:50 Dose: 10 mg Documented By: LELAND Metoprolol Succinate (Metoprolol Succinate Er 50 Mg Tab.Er.24h) 50 mg PO DAILY [facility]; Protocol Last Admin: 12/24/21 07:50 Dose: 50 mg Documented By: LELAND Non-Formulary Medication (Febuxostat) 40 mg PO DAILY [facility] Ondansetron HCl (Ondansetron Hcl 4 Mg/2 Ml Vial) 4 mg IVPUSH Q8H PRN PRN Reason: Nausea and Vomiting Pharmacy Consult (Consult Rx Perform Med Rec) 1 each MISCELLANE ONCE PRN PRN Reason: Consult order Prednisone (Prednisone 20 Mg Tablet) 60 mg PO DAILY [facility] Last Admin: 12/24/21 07:50 Dose: 60 mg Documented By: LELAND Sodium Chloride (0.9 % Sodium Chloride Flush 3 Ml Syringe) 3 ml IVFLUSH QSHIFT [facility] Last Admin: 12/24/21 07:51 Dose: 3 ml Documented By: LELAND Labs CBC & Chem 7: 12/23/21 07:22 12/23/21 07:22 Labs: Laboratory Results - last 24 hr 12/23/21 12/23/21 12/23/21 13:42 18:25 20:39 POC Glucose 222 H 221 H 208 H 12/24/21 12/24/21 07:22 11:00 POC Glucose 164 H 178 H Microbiology Microbiology Results: Microbiology 12/22/21 22:11 Blood Culture - Preliminary Blood - Venous No growth after 24 hours. 12/22/21 21:25 Blood Culture - Preliminary Blood - Venous No growth after 24 hours. Assessment and Plan (1) Pneumonitis: Status: Acute (2) Acute respiratory failure: Status: Acute (3) Interstitial lung disease: Status: Acute Plan 86-year-old male with a pertinent history of dementia, chronic kidney disease stage 3, essential hypertension, insulin-dependent diabetes mellitus who was brought to the emergency department by his for evaluation of shortness of breath. Acute hypoxemic respiratory failure -imaging with evidence of interstitial lung disease.? Noted elevated eosinophils, ?eosinophilic pneumonia.? continue nebs , taper steriods and oxygen oob,cough mediction,loratidine pulm eval Chronic kidney disease stage 3 -creatinine at baseline.? Avoid nephrotoxins Type 2 insulin-dependent diabetes mellitus: controlled. -reduce basal dose while in the hospital.? Initiating Accu-Cheks with sliding scale insulin before meals and at bedtime. Essential hypertension: somewhat uncontrolled continue amlodipine ,dc metoprolol,changed to coreg. stop hydralazine as per pulm ? Dementia -on memantine Chronic lower extremity edema -will benefit from compression stockings ? Generalized weakness -consulting Physical therapy to evaluate and treat Hematuria noted on UA -may have to repeat and workup as an outpatient obesity: weight loss DVT prophylaxis: Lovenox . need for inpatient:Acute hypoxemic respiratory failure-imaging with evidence of interstitial lung disease.? Quality Stroke Does the patient have a stroke diagnosis?: No VTE Prior VTE?: No VTE Risk Level:: Medical - moderate - high VTE Device Contraindication: Treatment Not Indicated VTE Drug Contraindication: N/A - Med Ordered
[2021-12-24 13:31] LABS: Erythrocyte Sedimentation Rate 25 MM/HR (0-15)
--- NOTE | 2021-12-24 14:33 | MHC.CM.PN ---
IMM 12/24/21 DELIVERED TO BEDSIDE AND REVIEWED W/PT'S /HCP FEDE PT HAS DEMENTIA AND UNABLE TO ANSWER MOST QUESTIONS, PER PT NEEDS ASSISTANCE W/SHOWERING AND SHE PROVIDES CARE FOR PT, DENIES PT HAS HOME SERVICES HOWEVER HAD AN APPT W/[facility] TOMORROW 12/25 HOWEVER WAS CANCELLED D/T PT BEING IN THE HOSPITAL. PT'S REPORTS SHE ALSO WANTED TO SIGN PT UP FOR [facility] HOWEVER PT'S SON LOST THE APPLICATION, FEDE IS AWARE THAT THAT CAN TAKE APPROX 6MOS TO GET HELP IN THE HOME. FEDE REQUESTING VNA SERVICES AND PT FOR PT UPON D/C IF HE DOES NOT NEED STR, PT HAS PREVIOUSLY BEEN AT [facility] IN [place]. FEDE ALSO COMPLAINING WHEN SHE ASKED PCP TO SET UP A VNA FOR PT, PT'S PCP OFFICE SAID THEY DONT DO THAT, FEDE ALSO REQUESTING INFO FOR WALK IN SHOWER PT HAS DIFFICULTY STEPPING OVER SIDE OF TUB, FEDE AWARE CM DOES NOT HAVE THAT INFOR AND FEDE WILL CONTACT PT'S INSURANCE. ANTIC D/C HOME W/NEW VNA AND FAMILY FOR TRANSPORT PCP VERIFIED JOEL SMITH, AURELIA X2 AND HCP IS FEDE AND COPY IS ON FILE.
[2021-12-24 15:58] VITALS: BP 146/68; PULSE 63; RESP 19; TEMP 36.6; O2SAT 94
--- NOTE | 2021-12-24 16:06 | MHC.CM.PN ---
CM RECEIVED CALL FROM [facility] REPORTING THEY CAN TAKE PT W/SOC ON WEDNESDAY 12/27 FOR SN/PT.
[2021-12-24 16:14] LABS: Glucose, Whole Blood 267 mg/dL (60-115)
[2021-12-24] MEDS: Loratadine 10 MG TABLET PO (17:03)
[2021-12-24 18:12] VITALS: BP 142/63; PULSE 67; RESP 19; TEMP 36.4; O2SAT 89
[2021-12-24 18:49] LABS: Glucose, Whole Blood 276 mg/dL (60-115)
[2021-12-24] MEDS: carvediloL 12.5 MG TABLET PO (20:16)
[2021-12-24] MEDS: Atorvastatin Calcium 40 MG TABLET PO (20:16)
[2021-12-24] MEDS: Insulin Glargine,Hum.rec.anlog 100 UNIT/ML 10 ML VIAL 10 UNIT SUBCUT (20:16)
[2021-12-24 23:46] VITALS: BP 139/66; PULSE 57; RESP 18; TEMP 36.6; O2SAT 95
[2021-12-25] VITALS (7 sets, daily range): BP systolic 132–155; BP diastolic 60–71; PULSE 53–64; RESP 17–19; TEMP 36.1–36.7; O2SAT 90–93
[2021-12-25] MEDS: Enoxaparin Sodium 40 MG/0.4 ML SYRINGE SUBCUT (00:09)
[2021-12-25 07:09] LABS: Glucose, Whole Blood 157 mg/dL (60-115)
[2021-12-25] MEDS: predniSONE 20 MG TABLET 60 MG PO (07:34)
[2021-12-25] MEDS: Loratadine 10 MG TABLET PO (07:34)
[2021-12-25] MEDS: Memantine HCl 10 MG TABLET PO ×2 (07:34→19:50)
[2021-12-25] MEDS: Insulin Lispro 100 UNIT/ML 3 ML VIAL SUBCUT ×4 (07:34→19:50)
[2021-12-25] MEDS: amLODIPine Besylate 10 MG TABLET PO (07:34)
[2021-12-25] MEDS: 0.9 % Sodium Chloride Flush 3 ML SYRINGE IVFLUSH ×3 (07:35→19:38)
[2021-12-25 11:15] LABS: Glucose, Whole Blood 188 mg/dL (60-115)
[2021-12-25] MEDS: carvediloL 12.5 MG TABLET PO ×2 (11:41→19:50)
--- NOTE | 2021-12-25 12:00 | HO.PM.IMPN ---
Subjective Subjective Date of Service: 12/25/21 Interval History: sob seems similar to yesterday dry cough no fevers Review of Systems Still short of breath with talking. Denies any cough Denies any chest pain or abdominal pain or nausea vomiting Physical Exam Vital Signs: Vital Signs: Last Vital Signs Temp 97.0 F 12/25/21 11:41 Pulse 54 12/25/21 11:41 Resp 18 12/25/21 11:41 BP 155/71 H 12/25/21 11:41 Pulse Ox 90 L 12/25/21 11:41 O2 Del Method 12/25/21 11:41 O2 Flow Rate 2 12/25/21 07:20 BMI result Body Mass Index 30.0 ? Appearance: Alert.? Oriented X3.?sob cvs: rrr, [id number] , no murmur res: air entry diminshed at bases,has rhinchii/few dr cracles at bases. abd: no rebound or guarding ,nt, bs present. ext pulses present , no cyanosis . neuro: axo3 , nonfocal. Objective Data Active Medications Acetaminophen (Acetaminophen 325 Mg Tablet) 650 mg PO Q6H PRN PRN Reason: Pain, Mild (Pain Scale 1-3) Amlodipine Besylate (Amlodipine Besylate 10 Mg Tablet) 10 mg PO DAILY [facility]; Protocol Last Admin: 12/25/21 07:34 Dose: 10 mg Documented By: KRISTIN Atorvastatin Calcium (Atorvastatin Calcium 40 Mg Tablet) 40 mg PO BEDTIME [facility] Last Admin: 12/24/21 20:16 Dose: 40 mg Documented By: FAMILIA Benzonatate (Benzonatate 100 Mg Capsule) 100 mg PO TID PRN PRN Reason: Cough Calcium Carbonate (Calcium Carbonate 500 Mg Tablet) 500 mg PO DAILY [facility] Last Admin: 12/25/21 07:34 Dose: 500 mg Documented By: KRISTIN Carvedilol (Carvedilol 12.5 Mg Tablet) 12.5 mg PO BID [facility]; Protocol Last Admin: 12/25/21 11:41 Dose: 12.5 mg Documented By: KRISTIN Comments: given per Dr Anaya, Pulse 54 Dextrose (Dextrose 50 % 25 Gm/50 Ml Syringe) 25 gm IVPUSH Q15M PRN; Protocol PRN Reason: per Hypoglycemia Standing Ord. Dextrose (Dextrose 50 % 25 Gm/50 Ml Syringe) 25 gm IVPUSH Q15M PRN; Protocol PRN Reason: per Hypoglycemia Standing Ord. Enoxaparin Sodium (Enoxaparin Sodium 40 Mg/0.4 Ml Syringe) 40 mg SUBCUT Q24H [facility] Last Admin: 12/25/21 00:09 Dose: 40 mg Documented By: FAMILIA Glucose (Glucose Gel 15 Gm Gel..Gram.) 15 gm PO Q15M PRN; Protocol PRN Reason: per Hypoglycemia Standing Ord. Glucose (Glucose Gel 15 Gm Gel..Gram.) 15 gm PO Q15M PRN; Protocol PRN Reason: per Hypoglycemia Standing Ord. Guaifenesin (Guaifenesin 100 Mg/5 Ml Liquid) 10 ml PO Q4H PRN PRN Reason: Cough Insulin Glargine (Insulin Glargine,Hum.Rec.Anlog 100 Unit/Ml 10 Ml Vial) 10 unit SUBCUT BEDTIME [facility] Last Admin: 12/24/21 20:16 Dose: 10 unit Documented By: FAMILIA Insulin Human Lispro (Insulin Lispro 100 Unit/Ml 3 Ml Vial) 0 unit SUBCUT QIDACHS [facility]; Protocol Last Admin: 12/25/21 11:41 Dose: 2 unit Documented By: KRISTIN Loratadine (Loratadine 10 Mg Tablet) 10 mg PO DAILY [facility] Last Admin: 12/25/21 07:34 Dose: 10 mg Documented By: KRISTIN Melatonin (Melatonin 3 Mg Tablet) 6 mg PO BEDTIME PRN PRN Reason: Insomnia Memantine (Memantine Hcl 10 Mg Tablet) 10 mg PO BID [facility] Last Admin: 12/25/21 07:34 Dose: 10 mg Documented By: KRISTIN Non-Formulary Medication (Febuxostat) 40 mg PO DAILY [facility] Ondansetron HCl (Ondansetron Hcl 4 Mg/2 Ml Vial) 4 mg IVPUSH Q8H PRN PRN Reason: Nausea and Vomiting Pharmacy Consult (Consult Rx Perform Med Rec) 1 each MISCELLANE ONCE PRN PRN Reason: Consult order Prednisone (Prednisone 20 Mg Tablet) 60 mg PO DAILY [facility] Last Admin: 12/25/21 07:34 Dose: 60 mg Documented By: KRISTIN Sodium Chloride (0.9 % Sodium Chloride Flush 3 Ml Syringe) 3 ml IVFLUSH QSHIFT [facility] Last Admin: 12/25/21 07:35 Dose: 3 ml Documented By: KRISTIN Labs CBC & Chem 7: 12/23/21 07:22 12/23/21 07:22 Labs: Laboratory Results - last 24 hr 12/24/21 12/24/21 12/24/21 12:50 16:11 18:16 ESR 25 H POC Glucose 267 H 276 H 12/25/21 12/25/21 06:56 11:04 ESR POC Glucose 157 H 188 H Microbiology Microbiology Results: Microbiology 12/22/21 22:11 Blood Culture - Preliminary Blood - Venous Prelim: GPC Gram Stain only 12/22/21 21:25 Blood Culture - Preliminary Blood - Venous No growth after 48 hours. Assessment and Plan (1) Pneumonitis: Status: Acute (2) Acute respiratory failure: Status: Acute (3) Bacteremia: Status: Acute Plan 86-year-old male with a pertinent history of dementia, chronic kidney disease stage 3, essential hypertension, insulin-dependent diabetes mellitus who was brought to the emergency department by his for evaluation of shortness of breath. Acute hypoxemic respiratory failure -imaging with evidence of interstitial lung disease.? Noted elevated eosinophils, ?eosinophilic pneumonia.? continue nebs , taper steriods and oxygen oob,cough mediction,loratidine pulm eval apprecaited-Continue Prednisone 60mg, taper by 10mg every week until on 20mg daily,?discontinue Hydralazine. blood culture-1/2 grampositive cocci-? contamination-no fevers or leucocytosis or new symptoms , will defer antibiotics and moniter. ID eval and pulm follow up ?Chronic kidney disease stage 3 -creatinine at baseline.? Avoid nephrotoxins ?Type 2 insulin-dependent diabetes mellitus: controlled. -reduce basal dose while in the hospital.? Initiating Accu-Cheks with sliding scale insulin before meals and at bedtime. Essential hypertension: somewhat uncontrolled continue amlodipine ,dc metoprolol,changed to coreg. stop hydralazine as per pulm ? Dementia -on memantine ?Chronic lower extremity edema -will benefit from compression stockings ? Generalized weakness -consulting Physical therapy to evaluate and treat ?Hematuria noted on UA -may have to repeat and workup as an outpatient obesity: weight loss DVT prophylaxis: Lovenox . need for inpatient:Acute hypoxemic respiratory failure-imaging with evidence of interstitial lung disease,? positive blood cultures .? Quality Stroke Does the patient have a stroke diagnosis?: No VTE Prior VTE?: No VTE Risk Level:: Medical - moderate - high VTE Device Contraindication: Treatment Not Indicated VTE Drug Contraindication: N/A - Med Ordered
--- NOTE | 2021-12-25 13:50 | MHC.CM.PN ---
PT NOT YET CLEARED TO DC DC PLAN REMAINS HOME WITH [facility] FAMILY TO TRANSPORT
--- NOTE | 2021-12-25 14:40 | MHC.CLN ---
NUTRITION CONSULT FOR SKIN ISSUE. REDNESS TO PERINEAL AREA AND BILATERAL GROIN. NO OPEN AREAS. DIET=DIABETIC 2000 KCAL-APPROPRIATE. NO ADDITIONAL NUTRITION INTERVENTIONS AT THIS TIME.
[2021-12-25 15:48] LABS: Glucose, Whole Blood 385 mg/dL (60-115)
--- NOTE | 2021-12-25 16:22 | P.CNID_ITS ---
History of Present Illness Data of Consult Service Date: 12/25/21 Requesting physician: Keren Anaya Primary Care Provider: Unknown Physician HPI Reason for consult: confusion,bacteremia He presents with one week worsening confusion per . He has no fever or chills. He has 1/2 positive blood cultures gram positive cocci in clusters. He has no cellulitis or prior endocarditis mentioned. 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 Family history: reviewed and not pertinent Surgical History Surgical History Hx of cataract surgery Social History Social History Household Members: Spouse Housing: House Do you presently have visiting nurse or other home services: No Alcohol intake: never Patient Tobacco Use Status: Former Tobacco user Years Smoked: QUIT 35 YEARS AGO e-Cigarette/Vaping Use: Never Used Advance Directives Date on File: 08/23/21 service: Yes Current occupational status: retired Cognitive needs: No Hearing needs: No Vision needs: Yes Meds Allergies Allergy/AdvReac Type Severity Reaction Status Date / Time No Known Allergies Allergy Verified 12/05/21 20:35 [No Known Allergies*] Active Medications: Current Medications Acetaminophen (Acetaminophen 325 Mg Tablet) 650 mg PO Q6H PRN PRN Reason: Pain, Mild (Pain Scale 1-3) Amlodipine Besylate (Amlodipine Besylate 10 Mg Tablet) 10 mg PO DAILY JI; Protocol Last Admin: 12/25/21 07:34 Dose: 10 mg Atorvastatin Calcium (Atorvastatin Calcium 40 Mg Tablet) 40 mg PO BEDTIME JI Last Admin: 12/24/21 20:16 Dose: 40 mg Benzonatate (Benzonatate 100 Mg Capsule) 100 mg PO TID PRN PRN Reason: Cough Calcium Carbonate (Calcium Carbonate 500 Mg Tablet) 500 mg PO DAILY [facility] Last Admin: 12/25/21 07:34 Dose: 500 mg Carvedilol (Carvedilol 12.5 Mg Tablet) 12.5 mg PO BID [facility]; Protocol Last Admin: 12/25/21 11:41 Dose: 12.5 mg Dextrose (Dextrose 50 % 25 Gm/50 Ml Syringe) 25 gm IVPUSH Q15M PRN; Protocol PRN Reason: per Hypoglycemia Standing Ord. Dextrose (Dextrose 50 % 25 Gm/50 Ml Syringe) 25 gm IVPUSH Q15M PRN; Protocol PRN Reason: per Hypoglycemia Standing Ord. Enoxaparin Sodium (Enoxaparin Sodium 40 Mg/0.4 Ml Syringe) 40 mg SUBCUT Q24H [facility] Last Admin: 12/25/21 00:09 Dose: 40 mg Glucose (Glucose Gel 15 Gm Gel..Gram.) 15 gm PO Q15M PRN; Protocol PRN Reason: per Hypoglycemia Standing Ord. Glucose (Glucose Gel 15 Gm Gel..Gram.) 15 gm PO Q15M PRN; Protocol PRN Reason: per Hypoglycemia Standing Ord. Guaifenesin (Guaifenesin 100 Mg/5 Ml Liquid) 10 ml PO Q4H PRN PRN Reason: Cough Insulin Glargine (Insulin Glargine,Hum.Rec.Anlog 100 Unit/Ml 10 Ml Vial) 10 unit SUBCUT BEDTIME [facility] Last Admin: 12/24/21 20:16 Dose: 10 unit Insulin Human Lispro (Insulin Lispro 100 Unit/Ml 3 Ml Vial) 0 unit SUBCUT QIDACHS [facility]; Protocol Last Admin: 12/25/21 11:41 Dose: 2 unit Loratadine (Loratadine 10 Mg Tablet) 10 mg PO DAILY [facility] Last Admin: 12/25/21 07:34 Dose: 10 mg Melatonin (Melatonin 3 Mg Tablet) 6 mg PO BEDTIME PRN PRN Reason: Insomnia Memantine (Memantine Hcl 10 Mg Tablet) 10 mg PO BID [facility] Last Admin: 12/25/21 07:34 Dose: 10 mg Non-Formulary Medication (Febuxostat) 40 mg PO DAILY [facility] Ondansetron HCl (Ondansetron Hcl 4 Mg/2 Ml Vial) 4 mg IVPUSH Q8H PRN PRN Reason: Nausea and Vomiting Pharmacy Consult (Consult Rx Perform Med Rec) 1 each MISCELLANE ONCE PRN PRN Reason: Consult order Prednisone (Prednisone 20 Mg Tablet) 60 mg PO DAILY [facility] Last Admin: 12/25/21 07:34 Dose: 60 mg Sodium Chloride (0.9 % Sodium Chloride Flush 3 Ml Syringe) 3 ml IVFLUSH QSHIFT [facility] Last Admin: 12/25/21 07:35 Dose: 3 ml Home Medications Medication Instructions Recorded Confirmed Last Taken Type blood sugar diagnostic #10 ea 01/29/20 10/25/21 Unknown History pen needle, diabetic 31 gauge x #50 01/29/20 10/25/21 Unknown History / insulin lispro 100 unit/mL 10 unit subcut DAILY@1700 08/23/21 12/22/21 12/21/21 History subcutaneous pen (Humalog KwikPen (U-100) Insulin) hydralazine 25 mg tablet 25 mg PO TID 09/15/21 12/22/21 12/22/21 History febuxostat 40 mg tablet 40 mg PO DAILY 12/11/21 12/22/21 12/22/21 History Physical Exam Vital Signs: Vital Signs: Last Vital Signs Temp 97.8 F 12/25/21 15:14 Pulse 58 12/25/21 15:14 Resp 19 12/25/21 15:14 BP 132/60 12/25/21 15:14 Pulse Ox 93 12/25/21 15:14 O2 Del Method 12/25/21 15:14 O2 Flow Rate 1.5 12/25/21 15:14 BMI result Body Mass Index 30.0 Const: General: cooperative HEENT: Head: Yes normal to inspection Face and sinus: Yes normal facial exam Mouth: Normal oral and palatal mucosa present Teeth and gingiva: dentition normal Eyes: General: appearance normal, both eyes and all related structures Pupils: Equal, round and reactive pupils present Resp: Effort & Inspection: normal respiratory effort Cardio: Rate: regular rate Rhythm: regular rhythm GI: Palpation (GI): Soft to palpation and nontender : General: Yes no CVA tenderness Back/Spine/Pelvis: Back: no CVA tenderness Skin: General skin exam: no rashes or lesions noted Neuro: General: moves all extremities Cranial nerves: Yes Equal, round and reactive pupils present Extrem: General: Yes normal to inspection Psych: Other: confusion Results Labs CBC & Chem 7: 12/23/21 07:22 12/23/21 07:22 Microbiology Microbiology Results: Microbiology 12/22/21 22:11 Blood - Venous Blood Culture - Preliminary Prelim: GPC Gram Stain only 12/22/21 21:25 Blood - Venous Blood Culture - Preliminary No growth after 48 hours. Assessment and Plan (1) Bacteremia: Status: Acute this may likely be contaminant there is only one blood culture positive There are no signs of sepsis (2) Acute respiratory failure: Status: Acute Would hold any antibiotics at this time Evaluate results when available. (3) Interstitial lung disease: Status: Acute (4) Hypoxia: Status: Acute
[2021-12-25 19:47] LABS: Glucose, Whole Blood 429 mg/dL (60-115)
[2021-12-25] MEDS: Insulin Glargine,Hum.rec.anlog 100 UNIT/ML 10 ML VIAL 10 UNIT SUBCUT (19:50)
[2021-12-25] MEDS: Atorvastatin Calcium 40 MG TABLET PO (19:50)
[2021-12-25 20:42] LABS: Anti Nuclear Antibody Pattern Nuclear, Homogeneous; Anti Nuclear Antibody Screen POSITIVE (NEGATIVE)
[2021-12-26] VITALS (9 sets, daily range): BP systolic 123–158; BP diastolic 59–75; PULSE 51–61; RESP 17–18; TEMP 36–36.9; O2SAT 94–96
[2021-12-26] MEDS: Enoxaparin Sodium 40 MG/0.4 ML SYRINGE SUBCUT ×2 (00:52→23:49)
--- NOTE | 2021-12-26 02:42 | PC.NURSE ---
@21:00 poc 429, notify to Dr. Carl, given scheduled lantus 10units, sliding scale insulin 14 units. not extra insulin ordered at that time.
[2021-12-26 06:31] LABS: Anion Gap 12 (12-20); Blood Urea Nitrogen 38 mg/dL (9-16); Calcium 8.4 mg/dL (8.4-10.2); Carbon Dioxide 24 mmol/L (22-29); Chloride 109 mmol/L (96-108); Creatinine Clr Calc Pharmacy 45.9; Estimated Glomerular Filt Rate 50; Glucose Random 173 mg/dL (60-115); Potassium 4.1 mmol/L (3.3-5.1); Sodium 141 mmol/L (135-145)
[2021-12-26 07:28] LABS: Glucose, Whole Blood 141 mg/dL (60-115)
[2021-12-26] MEDS: Memantine HCl 10 MG TABLET PO ×2 (08:24→21:13)
[2021-12-26] MEDS: predniSONE 20 MG TABLET 60 MG PO (08:24)
[2021-12-26] MEDS: amLODIPine Besylate 10 MG TABLET PO (08:25)
[2021-12-26] MEDS: Loratadine 10 MG TABLET PO (08:25)
[2021-12-26] MEDS: 0.9 % Sodium Chloride Flush 3 ML SYRINGE IVFLUSH ×3 (08:25→23:49)
--- NOTE | 2021-12-26 10:09 | P.PNIM_ITS ---
Subjective Subjective Date of Service: 12/27/21 Review of Systems Follow up acute hypoxic respiratory failure Doing well, sitting up in chair Denies pain Physical Exam Vital Signs: Vital Signs: Last Vital Signs Temp 97.3 F 12/26/21 07:08 Pulse 52 12/26/21 07:08 Resp 18 12/26/21 07:08 BP 140/59 H 12/26/21 07:08 Pulse Ox 94 12/26/21 07:08 O2 Del Method 12/26/21 07:08 O2 Flow Rate 2 12/26/21 07:08 BMI result Body Mass Index 30.0 Appearing in no acute distress lung sounds mild crackles heart regular rate rhythm, clear S1, S2 positive bowel sounds, abdomen is soft, nontender neuro patient is alert x3, no focal deficits Objective Data Active Medications Acetaminophen (Acetaminophen 325 Mg Tablet) 650 mg PO Q6H PRN PRN Reason: Pain, Mild (Pain Scale 1-3) Amlodipine Besylate (Amlodipine Besylate 10 Mg Tablet) 10 mg PO DAILY [facility]; Protocol Last Admin: 12/26/21 08:25 Dose: 10 mg Documented By: ELA Atorvastatin Calcium (Atorvastatin Calcium 40 Mg Tablet) 40 mg PO BEDTIME [facility] Last Admin: 12/25/21 19:50 Dose: 40 mg Documented By: BLAKE Benzonatate (Benzonatate 100 Mg Capsule) 100 mg PO TID PRN PRN Reason: Cough Calcium Carbonate (Calcium Carbonate 500 Mg Tablet) 500 mg PO DAILY [facility] Last Admin: 12/26/21 08:24 Dose: 500 mg Documented By: ELA Carvedilol (Carvedilol 12.5 Mg Tablet) 12.5 mg PO BID [facility]; Protocol Last Admin: 12/26/21 08:29 Dose: Not Given Documented By: ELA Non-Admin Reason: Decreased Heart Rate Dextrose (Dextrose 50 % 25 Gm/50 Ml Syringe) 25 gm IVPUSH Q15M PRN; Protocol PRN Reason: per Hypoglycemia Standing Ord. Dextrose (Dextrose 50 % 25 Gm/50 Ml Syringe) 25 gm IVPUSH Q15M PRN; Protocol PRN Reason: per Hypoglycemia Standing Ord. Enoxaparin Sodium (Enoxaparin Sodium 40 Mg/0.4 Ml Syringe) 40 mg SUBCUT Q24H [facility] Last Admin: 12/26/21 00:52 Dose: 40 mg Documented By: BLAKE Glucose (Glucose Gel 15 Gm Gel..Gram.) 15 gm PO Q15M PRN; Protocol PRN Reason: per Hypoglycemia Standing Ord. Glucose (Glucose Gel 15 Gm Gel..Gram.) 15 gm PO Q15M PRN; Protocol PRN Reason: per Hypoglycemia Standing Ord. Guaifenesin (Guaifenesin 100 Mg/5 Ml Liquid) 10 ml PO Q4H PRN PRN Reason: Cough Insulin Glargine (Insulin Glargine,Hum.Rec.Anlog 100 Unit/Ml 10 Ml Vial) 10 unit SUBCUT BEDTIME [facility] Last Admin: 12/25/21 19:50 Dose: 10 unit Documented By: BLAKE Insulin Human Lispro (Insulin Lispro 100 Unit/Ml 3 Ml Vial) 0 unit SUBCUT QIDACHS [facility]; Protocol Last Admin: 12/26/21 08:37 Dose: Not Given Documented By: KRISTIN Non-Admin Reason: No Insulin Coverage Loratadine (Loratadine 10 Mg Tablet) 10 mg PO DAILY [facility] Last Admin: 12/26/21 08:25 Dose: 10 mg Documented By: ELA Melatonin (Melatonin 3 Mg Tablet) 6 mg PO BEDTIME PRN PRN Reason: Insomnia Memantine (Memantine Hcl 10 Mg Tablet) 10 mg PO BID [facility] Last Admin: 12/26/21 08:24 Dose: 10 mg Documented By: ELA Non-Formulary Medication (Febuxostat) 40 mg PO DAILY [facility] Ondansetron HCl (Ondansetron Hcl 4 Mg/2 Ml Vial) 4 mg IVPUSH Q8H PRN PRN Reason: Nausea and Vomiting Pharmacy Consult (Consult Rx Perform Med Rec) 1 each MISCELLANE ONCE PRN PRN Reason: Consult order Prednisone (Prednisone 20 Mg Tablet) 60 mg PO DAILY [facility] Last Admin: 12/26/21 08:24 Dose: 60 mg Documented By: ELA Sodium Chloride (0.9 % Sodium Chloride Flush 3 Ml Syringe) 3 ml IVFLUSH QSHIFT [facility] Last Admin: 12/26/21 08:25 Dose: 3 ml Documented By: ELA Labs CBC & Chem 7: 12/23/21 07:22 12/26/21 05:15 Labs: Laboratory Results - last 24 hr 09/12/25/21 12/25/21 12:50 11:04 15:18 Anion Gap Estim Creat Clear Calc Estimated GFR POC Glucose 188 H 385 H* Random Glucose Calcium SABRINA Screen POSITIVE A SABRINA Titer 1:80 H SABRINA Pattern Nuclear, Homogeneous A 12/25/21 12/26/21 12/26/21 19:38 05:15 07:11 Anion Gap 12 Estim Creat Clear Calc 45.9 Estimated GFR 50 POC Glucose 429 H* 141 H Random Glucose 173 H Calcium 8.4 SABRINA Screen SABRINA Titer SABRINA Pattern Microbiology Microbiology Results: Microbiology 12/22/21 22:11 Blood Culture - Preliminary Blood - Venous Gram positive cocci Assessment and Plan (1) Pneumonitis: Status: Acute (2) Acute respiratory failure: Status: Acute (3) Bacteremia: Status: Acute Plan 86-year-old male with a pertinent history of dementia, chronic kidney disease stage 3, essential hypertension, insulin-dependent diabetes mellitus who was brought to the emergency department by his for evaluation of shortness of breath. Acute hypoxemic respiratory failure. Resolved History of interstitial lung disease.? Noted elevated eosinophils, ?eosinophilic pneumonia.? continue nebs , taper steriods and oxygen Pulmonary consultation with recommendation to continue Prednisone 60mg, taper by 10mg every week until on 20mg daily,?discontinue Hydralazine. blood culture-1/2 gram positive cocci-? contamination-no fevers or leucocytosis or new symptoms , will defer antibiotics and moniter. Wait for final culture Id following Chronic kidney disease stage 3 creatinine at baseline.? Avoid nephrotoxins Diabetes mellitus type 2 Sliding scale, ADA diet Essential hypertension: somewhat uncontrolled continue amlodipine ,dc metoprolol,changed to coreg. stop hydralazine as per pulm Dementia on memantine Chronic lower extremity edema Compression stockings Generalized weakness physical therapy evaluation recommend home Obesity. BMI 30.0 Discussed the importance of weight management as this may be contributing to worsening of other comorbidities DVT prophylaxis: Lovenox attending Dr. Salas Full code Disposition. Home once medically cleared, final blood cultures come back Continue hospitalization for treatment of acute hypoxemic respiratory failure and positive blood cultures Quality Stroke Does the patient have a stroke diagnosis?: No VTE Prior VTE?: No VTE Risk Level:: Medical - moderate - high VTE Device Contraindication: Treatment Not Indicated VTE Drug Contraindication: N/A - Med Ordered
[2021-12-26 11:35] LABS: Glucose, Whole Blood 267 mg/dL (60-115)
[2021-12-26 11:35] LABS: B Type Natriuretic Peptide 245 pg/mL (<100)
[2021-12-26] MEDS: Insulin Lispro 100 UNIT/ML 3 ML VIAL SUBCUT ×3 (11:51→21:12)
[2021-12-26 15:29] LABS: Glucose, Whole Blood 208 mg/dL (60-115)
[2021-12-26 19:13] LABS: Glucose, Whole Blood 253 mg/dL (60-115)
[2021-12-26] MEDS: Insulin Glargine,Hum.rec.anlog 100 UNIT/ML 10 ML VIAL 10 UNIT SUBCUT (21:11)
[2021-12-26] MEDS: Atorvastatin Calcium 40 MG TABLET PO (21:13)
[2021-12-26] MEDS: carvediloL 12.5 MG TABLET PO (21:13)
[2021-12-26 22:52] LABS: Myeloperoxidase Antibody <1.0 AI; Proteinase 3 PR3 Antibodies <1.0 AI
[2021-12-27] VITALS (7 sets, daily range): BP systolic 132–161; BP diastolic 60–72; PULSE 51–85; RESP 17–18; TEMP 35.9–36.6; O2SAT 84–97
[2021-12-27 07:11] LABS: Glucose, Whole Blood 140 mg/dL (60-115)
--- NOTE | 2021-12-27 07:43 | PM.DS ---
DS: Providers Provider Date of Service: 12/27/21 Date of admission: 12/23/21 00:27 Primary care physician: Unknown Physician Consults: 12/23/21 00:25 Consult to Pulmonology Routine Consulting Provider: Josh Julian Reason for consultation: acute hypoxic respiratory failure likely due to ?ILD Has provider been notified: No 12/25/21 08:47 Consult to Infectious Diseases Routine Consulting Provider: Berkley Eastman Reason for consultation: bacteremia Has provider been notified: No Attending physician on discharge: Martinez Salas Discharging clinician: Maida Julian DS: Diagnosis Discharge Diagnosis (1) Pneumonitis: Status: Acute (2) Acute respiratory failure: Status: Acute (3) Bacteremia: Status: Acute DS: Summary Hospital Course Hospital Course: History and physical as per admitting provider This is a 86-year-old male with a pertinent history of dementia, chronic kidney disease stage 3, essential hypertension, insulin-dependent diabetes mellitus who was brought to the emergency department by his for evaluation of shortness of breath.? Patient is a poor historian and most of the history was obtained by the .? Patient has been having shortness of breath for a while which worsened in the last 1 week.? The shortness of breath is worse with exertion.? also states that the patient has gotten progressively weaker over the last 1 week and his p.o. intake is reduced.? No orthopnea or PND.? Does have leg swelling which is chronic.? No sick contacts.? No fever, cough, chills, chest discomfort, palpitations.? No pets at home including birds.? No history of asthma or COPD.? Patient does not have any associated symptoms.? No blood loss. In the emergency department, patient was found to be hypoxemic and hospitalist group was consulted for admission . Acute hypoxemic respiratory failure.? Resolved History of interstitial lung disease.? Noted elevated eosinophils, ?eosinophilic pneumonia.? Treated with [facility] andino Pulmonary consultation with recommendation to continue Prednisone 60mg, taper by 10mg every week until on 20mg daily,?discontinue Hydralazine. Coag-negative staph blood cultures, centrally negative Id following Chronic kidney disease stage 3 creatinine at baseline.? Avoid nephrotoxins Diabetes mellitus type 2 Treated with Sliding scale, ADA diet May continue home medications Essential hypertension: somewhat uncontrolled Continue amlodipine and metoprolol stop hydralazine as per pulm Dementia on memantine Chronic lower extremity edema Compression stockings Generalized weakness physical therapy evaluation recommend home Obesity.? BMI 30.0 Discussed the importance of weight management as this may be contributing to worsening of other comorbidities Time Spent with Patient Time attestation: Total time spent providing and/or coordinating discharge services: Discharge coordination time: Greater than 30 minutes Quality: Safe Use of Opioids Does Pt have an Active Cancer Diagnosis on the Problem List?: No Quality: Stroke Does the patient have a stroke diagnosis?: No Physical Exam Vital Signs: Vital Signs: Last Vital Signs Temp 98 F 12/27/21 06:48 Pulse 52 12/27/21 06:48 Resp 18 12/27/21 06:48 BP 150/70 H 12/27/21 06:48 Pulse Ox 96 12/27/21 06:48 O2 Del Method 12/27/21 06:48 O2 Flow Rate 2 12/27/21 06:48 BMI result Body Mass Index 30.0 Appearing in no acute distress lung sounds are clear to auscultation heart regular rate rhythm, clear S1, S2 positive bowel sounds, abdomen is soft, nontender neuro patient is alert x3, no focal deficits DS: Data Data Completed and Pending Labs on day of discharge: Laboratory Results - last 24 hr 12/24/21 12/24/21 12/26/21 12:50 12:50 10:35 POC Glucose B-Natriuretic Peptide 245 H SABRINA Titer 2 TNP SABRINA Titer 3 TNP SABRINA Pattern 2 TNP SABRINA Pattern 3 TNP Proteinase 3 (PR3) Ab <1.0 Myeloperoxidase Ab <1.0 12/26/21 12/26/21 12/26/21 11:30 14:59 18:52 POC Glucose 267 H 208 H 253 H B-Natriuretic Peptide SABRINA Titer 2 SABRINA Titer 3 SABRINA Pattern 2 SABRINA Pattern 3 Proteinase 3 (PR3) Ab Myeloperoxidase Ab 12/27/21 06:48 POC Glucose 140 H B-Natriuretic Peptide SABRINA Titer 2 SABRINA Titer 3 SABRINA Pattern 2 SABRINA Pattern 3 Proteinase 3 (PR3) Ab Myeloperoxidase Ab Preliminary micro results at discharge 12/22/21 22:11 Blood Culture - Preliminary Blood - Venous Gram positive cocci 12/22/21 21:25 Blood Culture - Preliminary Blood - Venous No growth after 48 hours. Discharge Plan Discharge Anticipated Discharge Date/Time: 09/28/22 07:43 Patient Disposition: Home, Self-Care Discharge Diagnosis: Acute hypoxic respiratory failure secondary to interstitial lung disease Negative [facility] Referrals: Josh Julian MD [Physician] - 1 Week Discharge Medications: New amlodipine 10 mg Tablet 10 mg PO DAILY Qty: 30 0RF Protocol: Hold for SBP< HOLD for SBP < : 90 prednisone 20 mg tablet See Taper PO DAILY Qty: 71 0RF Taper: Prednisone 60 mg daily for 7 Days and 0 Hour 50 mg daily for 7 Days and 0 Hour 40 mg daily for 7 Days and 0 Hour 30 mg daily for 7 Days and 0 Hour 20 mg daily for 7 Days and 0 Hour Continued (DME) lancets 28 gauge misc See Rx Instructions topical TID Qty: 100 6RF Rx Instructions: As directed memantine 10 mg tablet 10 mg PO BID Qty: 180 3RF atorvastatin 40 mg tablet 40 mg PO DAILY Qty: 90 1RF (DME) FreeStyle Lite Strips Strip See Rx Instructions .ROUTE .MEDSUPPLY Qty: 300 10RF Rx Instructions: 3 times a day insulin glargine [Lantus Solostar U-100 Insulin] 100 unit/mL (3 mL) insulin pen 13 unit subcut BEDTIME Qty: 15 5RF insulin lispro [Humalog KwikPen Insulin] 100 unit/mL insulin pen 6 unit subcut BIDWMEAL@0800,1200 30 Days Qty: 15 3RF Rx Instructions: 6 units with breakfast and lunch and 10units with dinner. calcium carbonate 600 mg calcium (1,500 mg) tablet 600 mg PO DAILY Qty: 90 3RF (DME) pen needle, diabetic [BD Solange 2nd Gen Pen Needle] 32 gauge x 5/32 needle See Rx Instructions .MEDSUPPLY Qty: 400 4RF Rx Instructions: 5 times a day furosemide 20 mg tablet 20 mg PO DAILY Qty: 90 1RF insulin lispro [Humalog KwikPen Insulin] 100 unit/mL insulin pen 10 unit subcut DAILY@1700 metoprolol succinate 50 mg tablet extended release 24 hr 50 mg PO DAILY Qty: 30 0RF (DME) blood sugar diagnostic Strip See Rx Instructions Not Applicable TID Qty: 10 Rx Instructions: As directed (DME) pen needle, diabetic 31 gauge x 1/4 needle See Rx Instructions .ROUTE QID Qty: 50 Rx Instructions: As directed (DME) lancets [FreeStyle Lancets] 28 gauge misc See Rx Instructions .ROUTE .MEDSUPPLY Qty: 300 3RF Rx Instructions: use 1 lancet three times a day to test blood sugar febuxostat 40 mg tablet 40 mg PO DAILY Discontinued hydralazine 25 mg tablet 25 mg PO TID amlodipine 5 mg tablet 5 mg PO DAILY Qty: 90 3RF Discharge Orders: Discharge Order (Routine); Ordered 12/27/21 Ordered By: Maida Julian Diet: Advance to usual diet Activity on Discharge: As tolerated Stand Alone Forms: Patient Portal Discharge page Activity Restrictions/Additional Instructions: You will be on a prednisone taper Please follow instructions carefully! 60 mg for 7 days 50 mg for 7 days 40 mg for 7 days 30 mg for 7 days 20 mg continue daily Care Plan Goals: Complete resolution of symptoms Health Concerns: Acute hypoxic respiratory failure secondary to interstitial lung disease Coag-negative [facility] Plan of Treatment: Follow-up with primary care provider as needed and take all medications as prescribed Assessment: See discharge summary
[2021-12-27] MEDS: carvediloL 12.5 MG TABLET PO (08:59)
[2021-12-27] MEDS: Loratadine 10 MG TABLET PO (08:59)
[2021-12-27] MEDS: predniSONE 20 MG TABLET 60 MG PO (08:59)
[2021-12-27] MEDS: amLODIPine Besylate 10 MG TABLET PO (08:59)
[2021-12-27] MEDS: 0.9 % Sodium Chloride Flush 3 ML SYRINGE IVFLUSH (08:59)
[2021-12-27] MEDS: Memantine HCl 10 MG TABLET PO (08:59)
--- NOTE | 2021-12-27 11:28 | MHC.CM.PN ---
Addendum entered by Johana Tinsley RN 12/27/21 16:13: PATIENT IS DC HOME WITH NEW HOME O2. Original Note: HOME TODAY WITH NEW [facility] START OF CARE TO PROVIDE BLUEPRINTER AWARE OF PLAN. IMM 12/26 IN CHART
--- NOTE | 2021-12-27 11:30 | P.F2F_ITS ---
Service Date Service Date: 12/27/21 Encounter Date of encounter: 12/27/21 Reasons for Services Signs and symptoms assessed: Weakness, interstitial lung disease Reason for retirement: CV/CP assess and/or care Homebound: Leaving the home is medically contraindicated at this time without the asist of a device and/or another person due th the listed conditions above and below. Reason homebound: unsteady gait / fall risk Certification: Based on the above findings, I certify that this patient is confined to the home and needs intermittent retirement care, physical therapy and/or speech therapy, or continues to need occupational therapy. The patient is under my care, and I have initiated the establishment of the plan of care. The patient will be followed by a physician who will periodically review the plan of care.
[2021-12-27 12:08] LABS: Glucose, Whole Blood 180 mg/dL (60-115)
[2021-12-27] MEDS: Insulin Lispro 100 UNIT/ML 3 ML VIAL SUBCUT (12:30)
[2021-12-27 15:22] LABS: Glucose, Whole Blood 321 mg/dL (60-115)
--- NOTE | 2021-12-27 16:14 | MHC.CM.PN ---
[facility] [phone]
[2021-12-28 14:16] LABS: Aldolase 9.9 U/L (<=8.1)
== END 2021-12-27 17:00 | disposition home health service (06) | DRG 196 ==
LOC: HO.ED 23:27 → HO.EDOVER 12-23 00:36 → HO.S3 12-23 18:04
PROVIDERS: Hospitalist; Internal Medicine; Admitting Provider Student in an Organized Health Care Education/Training Program; Emergency Provider Student in an Organized Health Care Education/Training Program; PCP Internal Medicine; Visit Provider Nurse Practitioner Acute Care
DX: J84.9 Interstitial pulmonary disease, unspecified (principal); J96.01 Acute respiratory failure with hypoxia; J82.81 Chronic eosinophilic pneumonia; R78.81 Bacteremia; M10.9 Gout, unspecified; E78.5 Hyperlipidemia, unspecified; N18.30 Chronic kidney disease, stage 3 unspecified; E11.40 Type 2 diabetes mellitus with diabetic neuropathy, unspecified; E11.65 Type 2 diabetes mellitus with hyperglycemia; E11.22 Type 2 diabetes mellitus with diabetic chronic kidney disease; R31.9 Hematuria, unspecified; T38.0X5A Adverse effect of glucocorticoids and synthetic analogues, initial encounter; E04.2 Nontoxic multinodular goiter; F03.90 Unspecified dementia, unspecified severity, without behavioral disturbance, psychotic disturbance, mood disturbance, and anxiety; I10 Essential (primary) hypertension; E66.9 Obesity, unspecified; Z68.30 Body mass index [BMI] 30.0-30.9, adult; Z71.3 Dietary counseling and surveillance; Z20.822 Contact with and (suspected) exposure to COVID-19; Z87.891 Personal history of nicotine dependence; Z79.4 Long term (current) use of insulin; Z79.899 Other long term (current) drug therapy
CPT/HCPCS: 36415; 71045; 71046; 71275; 80048; 80076; 81001; 82009; 82085; 82947; 83036; 83605; 83690; 83880; 84145; 84484; 85025; 85610; 85652; 86021; 86038; 86039; 87040; 87147; 87205; 87635; 93005; 96361; 96374; 97116; 97162; 99284; 99285; J0696; J1650; Q9967

== ENCOUNTER → 2022-01-02 15:53 | Outpatient (BNVA) | payer MEDICARE, SELFPAY | PROVIDERS: PCP Internal Medicine; Visit Provider Internal Medicine | DX: J84.9 Interstitial pulmonary disease, unspecified (principal); J84.10 Pulmonary fibrosis, unspecified; R09.02 Hypoxemia | CPT/HCPCS: 99212 ==

== ENCOUNTER → 2022-01-19 10:43 | Outpatient (REF) | payer MEDICARE, SELFPAY ==
--- NOTE | 2022-01-19 10:47 | HM_ITS ---
Conclusion: 1. Patient was monitored for total period of 3 days 2. Baseline was normal sinus rhythm with frequent sinus bradycardia with 93% of time heart rate below 60 beats per minute, with average heart rate of 53 beats per minute 3. No significant pauses noted 4. Total of 1411 PACs noted accounting for 0.62% of total beats accounting for occasional PACs 5. Total of 316 PVCs accounting for occasional PVCs with total burden of 0.14% 6. Short runs of supraventricular arrhythmias without evidence of significant atrial fibrillation 7. No patient reported events MTDD
--- NOTE | 2022-01-19 10:47 | CA_ITS ---
Transthoracic Echocardiogram Patient (Last, First, Middle): Eloy Malloy C Gender: Male Date of : 1935 Age: 86 Procedure Date: 01/19/2022 Procedure Type: Transthoracic Echocardiogram Location: OP Height: 180.34 cm Weight: 99.79 kg BSA: 2.20 m2 Heart Rate: 46 bpm BP: 152 / 64 mmHg Management Scientist: TO Referring MD: Fritz Hernandez MD Symptoms: I10 - Essential (primary) hypertension Study Quality: Fair Conclusions: - Normal left ventricular size and systolic function. There is mildly increased left ventricular wall thickness. The visually estimated ejection fraction is between 65-70%. - Normal right ventricular cavity size and systolic function. - The left atrium is mildly dilated. Findings Left Ventricle Normal left ventricular size and systolic function. There is mildly increased left ventricular wall thickness. The visually estimated ejection fraction is between 65-70%. There is no evidence of regional wall motion abnormalities. Diastolic function is indeterminate on the basis of available data. Spectral Doppler is indicative of an impaired relaxation filling pattern. E/E prime ratio is <8, consistent with normal filling pressures. Right Ventricle Normal right ventricular cavity size and systolic function. Atria The left atrium is mildly dilated. The right atrium is normal in size. Aortic Valve There is a normal trileaflet aortic valve. There is mild calcification of the aortic valve. There is no aortic valve stenosis. There is trace (trivial) aortic valve regurgitation. Mitral Valve The mitral valve appears normal. There is trace mitral valve regurgitation. There is no mitral valve stenosis. Pulmonic Valve Normal pulmonic valve structure and function. There is no pulmonic valve regurgitation. Tricuspid Valve Normal tricuspid valve structure and function. There is trace tricuspid valve regurgitation. Normal right atrial pressure. There is no evidence of pulmonary hypertension. Great Vessels All visible segments of the aorta are normal in size. The visualized portions of the pulmonary artery and branches are normal. Venous The inferior vena cava is normal in size and collapses greater than 50% with inspiration. Pericardium/Pleural There is no evidence of pericardial effusion. Prior Study Comparison No significant change compared to prior study dated: 04/28/2019. Measurements 2D Linear Measurements IVSd: 1.30 0.6-0.9/0.6-1.0 cm LVIDd: 5.04 3.9-5.3/4.2-5.9 cm LVIDd Index: 2.29 2.4-3.2/2.2-3.1 cm/m2 LVIDs: 2.59 2.0-3.6 cm LVPWd: 1.31 0.7-1.1 cm LA Diam: 3.40 2.7-3.8/3.0-4.0 cm LAIDs Index: 1.55 1.5-2.3 cm/m2 LV Mass: 332.46 67-162/88-224 g LV Mass Index: 151.12 43-95/49-115 g/m2 LVOT Diam: 2.20 3.0+(-)1.3 cm 2D Systolic Function EF 4C: 58.30 >55% EF 2C: 62.30 >55% EF BiP: 61.40 >55% Mitral Valve MV Pk E: 0.46 MV PK A: 0.57 MV Decel Time: 317.00 E/A: 0.80 E'Lateral: 6.31 E'Medial: 4.57 E/E' Med: 10.10 E/E' Lat: 7.30 PHT: 93.00 MVA PHT: 2.37 Decel [place]: 1.46 Aortic Valve AoV Pk Jason: 1.36 AoV Mn Jason: 0.93 AoV VTI: 0.33 AoV Pk Grad: 7.00 Aov Mn Grad: 4.00 DONNY Cont.VTI: 2.45 LVOT LVOT Pk Jason: 0.84 LVOT Mn Jason: 0.58 LVOT VTI: 0.21 LVOT Pk Grad: 3.00 LVOT Mn Grad: 2.00 LVOT Diam: 2.20 LVOT Area: 3.80 Diastolic Function MV Pk E: 0.46 MV Pk A: 0.57 E/A: 0.80 E'Medial: 4.57 E/E' Med: 10.10 E' Laterial: 6.31 E/E' Lat: 7.30 Right Ventricle TAPSE (mm): 20.80 TVS' Jason: 10.40 Tricuspid Valve TR Pk Jason: 2.85 TR Pk Grad: 33.00 RA Press: 3.00 RVSP: 36.00 Great Vessels Aorta Sinus of Valsalva: 3.41 2.0-3.5 cm Ao Asc: 3.40 2.1-3.4 cm Updated in Other Vendor System with Status of Final Julius Leal MD electronically signed on 01/21/2022 7:42:56 PM with status of Final
== END ==
LOC: HO.CARD 10:43
PROVIDERS: Visit Provider Internal Medicine Cardiovascular Disease
DX: R00.1 Bradycardia, unspecified (principal); I10 Essential (primary) hypertension
CPT/HCPCS: 93242; 93306

== ENCOUNTER → 2022-01-24 13:43 | Outpatient (BNVA) | payer MEDICARE, SELFPAY | PROVIDERS: PCP Internal Medicine; Visit Provider Nurse Practitioner Family | DX: M1A.09X1 Idiopathic chronic gout, multiple sites, with tophus (tophi) (principal) | CPT/HCPCS: 99212 ==

== ENCOUNTER → 2022-02-05 15:52 | Outpatient (BNVA) | payer MEDICARE, SELFPAY | PROVIDERS: PCP Internal Medicine; Visit Provider Internal Medicine | DX: J84.10 Pulmonary fibrosis, unspecified (principal); R09.02 Hypoxemia | CPT/HCPCS: 99212 ==

== ENCOUNTER → 2022-02-06 13:31 | Outpatient (BNVA) | payer MEDICARE, SELFPAY | PROVIDERS: PCP Internal Medicine; Referring Provider Internal Medicine; Visit Provider Internal Medicine Cardiovascular Disease | DX: R00.1 Bradycardia, unspecified (principal); I10 Essential (primary) hypertension | CPT/HCPCS: 99212 ==